=== PATIENT | male | born 1940 | race Caucasian/White ===

== ENCOUNTER 2020-03-04 19:01 | Inpatient (IN) ==
[2020-03-04] MEDS ORDERED: GLUCAGON 1 MG VIAL IM PRN (22:09)
[2020-03-04 23:02] LABS: Basophils % 0.1 % (0.0-0.8); Hematocrit 27.5 VOL% (42.0-52.0); Hemoglobin 9.6 GM/DL (14.0-18.0); Immature Granulocytes % 0.6 %; Immature Granulocytes Absolute 0.06 #; Lymphocytes # 0.4 10*3/uL (1.4-4.0); Lymphocytes % 4.5 % (21.2-54.2); Mean Corpuscular HGB Conc 34.9 GM/DL (32-36); Mean Corpuscular Volume 104.6 FL (87-102); Monocytes % 2.9 % (1.7-12.7); Neutrophils % 91.9 % (38.7-73.9); Platelet Count 213 T/CUMM (130-400); Red Blood Count 2.63 MC/CUMM (3.8-5.5); Red Cell Distribution Width 14.3 % (9.3-17.3); White Blood Count 9.6 T/CUMM (4-12)
[2020-03-04 23:23] LABS: Band Neutrophils 6 % (0-10); Hypochromasia Slight; Lymphocytes 6 % (20-55); Macrocytosis Slight; Platelet Estimate Normal; Segmented Neutrophils 86 % (50-85); Total Cells Counted 100
[2020-03-04 23:28] LABS: Bilirubin,Total 1.3 MG/DL (0.2-1.0); Calcium 8.3 MG/DL (8.5-10.1)
[2020-03-04] MEDS: SODIUM CHLORIDE 0.9% 1,000 ML IV SCH (23:30)
[2020-03-05] MEDS ORDERED: CHOLECALCIFEROL 1,000 UNIT TABLET PO ONE (00:46)
[2020-03-05] MEDS: PANTOPRAZOLE 40 MG VIAL IV SCH ×2 (02:45→14:35)
[2020-03-05] MEDS: cefTRIAXone 1,000 MG in SYRINGE 1 EACH IV SCH (02:48)
[2020-03-05] MEDS: AZITHROMYCIN INJ 500 MG in SODIUM CHLORIDE 0.9% 250 ML IV SCH (02:55)
[2020-03-05] MEDS: ACETAMINOPHEN 325 MG TABLET PO PRN ×2 (03:23→17:16)
[2020-03-05 06:05] LABS: INR 1.1; PT Patient Result 11.9 SECS (9.8-11.9)
[2020-03-05 07:39] LABS: Albumin 2.8 G/DL (3.4-5.0); Bilirubin,Total 1.6 MG/DL (0.2-1.0); Calcium 8.1 MG/DL (8.5-10.1); Osmolality,Calculated 284.5 MOS/KG (273-304)
[2020-03-05] MEDS ORDERED: POTASSIUM CHLORIDE 20 MEQ TABLET PO ONE (08:04)
[2020-03-05] MEDS ORDERED: ASCORBIC ACID 500 MG TABLET PO SCH (09:00)
[2020-03-05] MEDS: FINASTERIDE 5 MG TABLET PO SCH (09:50)
[2020-03-05] MEDS: ZINC SULFATE 220 MG CAPSULE PO SCH (09:50)
[2020-03-05] MEDS: LACTATED RINGERS 1,000 ML IV SCH ×2 (09:50→17:39)
[2020-03-05] MEDS: DEXAMETHASONE 4 MG/1 ML VIAL IV SCH (09:50)
[2020-03-05] MEDS: FAMOTIDINE 20 MG/2 ML VIAL IV SCH ×2 (09:53→20:46)
[2020-03-05] MEDS ORDERED: LOPERAMIDE 2 MG CAPSULE PO PRN (13:33)
[2020-03-05] MEDS: SODIUM CHLORIDE 0.9% 1,000 ML IV SCH (17:40)
[2020-03-05] MEDS: ASCORBIC ACID 500 MG TABLET PO SCH (20:46)
[2020-03-06] MEDS: LACTATED RINGERS 1,000 ML IV SCH ×3 (01:10→15:37)
[2020-03-06] MEDS: PANTOPRAZOLE 40 MG VIAL IV SCH ×2 (02:40→12:59)
[2020-03-06] MEDS: cefTRIAXone 1,000 MG in SYRINGE 1 EACH IV SCH (02:44)
[2020-03-06] MEDS: AZITHROMYCIN INJ 500 MG in SODIUM CHLORIDE 0.9% 250 ML IV SCH (02:48)
[2020-03-06 06:42] LABS: Hemoglobin 9.7 GM/DL (14.0-18.0); Immature Granulocytes % 1.1 %; Immature Granulocytes Absolute 0.09 #; Lymphocytes # 0.3 10*3/uL (1.4-4.0); Lymphocytes % 3.9 % (21.2-54.2); Mean Corpuscular HGB Conc 34.6 GM/DL (32-36); Mean Corpuscular Volume 105.3 FL (87-102); Mean Platelet Volume 12.1 FL (9.6-12.0); Monocytes % 2.3 % (1.7-12.7); Neutrophils % 92.7 % (38.7-73.9); Platelet Count 240 T/CUMM (130-400); Red Blood Count 2.66 MC/CUMM (3.8-5.5); White Blood Count 8.4 T/CUMM (4-12)
[2020-03-06 07:12] LABS: Albumin 2.4 G/DL (3.4-5.0); Bilirubin,Total 0.6 MG/DL (0.2-1.0); Calcium 8.2 MG/DL (8.5-10.1); Osmolality,Calculated 289.5 MOS/KG (273-304); Total Protein 6.5 G/DL (6.4-8.3)
[2020-03-06 07:29] LABS: Ferritin 6679.1 ng/ml (26-388)
[2020-03-06] MEDS: DEXAMETHASONE 4 MG/1 ML VIAL IV SCH (08:10)
[2020-03-06] MEDS: FINASTERIDE 5 MG TABLET PO SCH (08:11)
[2020-03-06] MEDS: ASCORBIC ACID 500 MG TABLET PO SCH ×2 (08:11→22:01)
[2020-03-06] MEDS: FAMOTIDINE 20 MG/2 ML VIAL IV SCH (08:11)
[2020-03-06] MEDS ORDERED: SODIUM BICARBONATE 50 MEQ/50 ML SYRINGE IV ONE (09:00)
[2020-03-06 09:32] LABS: Band Neutrophils 6 % (0-10); Lymphocytes 11 % (20-55); Metamyelocytes 2 %; Segmented Neutrophils 70 % (50-85); Total Cells Counted 100
[2020-03-06 09:33] LABS: Macrocytosis 2+; Platelet Estimate Normal; Polychromasia Slight
[2020-03-06] MEDS: SODIUM BICARB INJ 100 MEQ in DEXTROSE 5% 1,000 ML IV SCH ×2 (12:04→16:51)
[2020-03-06] MEDS ORDERED: SODIUM CHLORIDE 0.9% 1,000 ML IV PRN (14:07)
[2020-03-07 02:33] LABS: ABG Base Excess -1.8 MMOL/L (-2.5-2.5); ABG HCO3 22.2 MMOL/L (20-26); ABG PCO2 34.7 MM HG (35-48); ABG PH 7.424 (7.35-7.45); ABG PO2 71.7 MM HG (80-95); ABG TCO2 23.3 MMOL/L (23-27); Allen Test Positive; Pt O2 Delivery Device Simple Mask
[2020-03-07] MEDS: cefTRIAXone 1,000 MG in SYRINGE 1 EACH IV SCH (02:40)
[2020-03-07] MEDS: AZITHROMYCIN INJ 500 MG in SODIUM CHLORIDE 0.9% 250 ML IV SCH (02:49)
[2020-03-07] MEDS: PANTOPRAZOLE 40 MG VIAL IV SCH (02:59)
[2020-03-07] MEDS ORDERED: HALOPERIDOL 5 MG/ML AMP IM ONE ×3 (04:18→09:30)
[2020-03-07 06:21] LABS: Total Protein (Chem) 6.5 G/DL (6.4-8.3)
[2020-03-07 07:37] LABS: Ferritin 8048.4 ng/ml (26-388)
[2020-03-07] MEDS: LACTATED RINGERS 1,000 ML IV SCH ×2 (07:56→16:50)
[2020-03-07 09:26] LABS: Albumin (SPE) 3.8 G/DL (3.2-5.3); Albumin (SPE) Rel % 57.9 %; Alpha 1 (SPE) 0.3 G/DL (0.1-0.4); Alpha 2 (SPE) 0.9 G/DL (0.4-1.0); Alpha 2 (SPE) Rel % 14.6 %; Beta (SPE) 0.9 G/DL (0.5-1.1); Beta (SPE) Rel % 13.7 %; Gamma (SPE) 0.6 G/DL (0.7-1.7); Gamma (SPE) Rel % 8.8 %
[2020-03-07] MEDS ORDERED: LORazepam 2 MG/1 ML VIAL IV ONE (09:30)
[2020-03-07 10:17] LABS: Albumin 2.7 G/DL (3.4-5.0); Bilirubin,Total 0.6 MG/DL (0.2-1.0); Calcium 8.8 MG/DL (8.5-10.1); Osmolality,Calculated 298.8 MOS/KG (273-304); Total Protein 6.5 G/DL (6.4-8.3)
[2020-03-07] MEDS ORDERED: ZIPRASIDONE 20 MG/1 ML VIAL IM ONE (10:52)
[2020-03-07] MEDS: SODIUM BICARB INJ 100 MEQ in DEXTROSE 5% 1,000 ML IV SCH ×2 (12:01→18:24)
[2020-03-07] MEDS: DEXAMETHASONE 4 MG/1 ML VIAL IV SCH (12:02)
[2020-03-07] MEDS: FAMOTIDINE 20 MG/2 ML VIAL IV SCH ×3 (12:02→23:45)
[2020-03-07] MEDS ORDERED: METOPROLOL TARTRATE 5 MG/5 ML VIAL IV ONE (12:02)
[2020-03-07] MEDS: FINASTERIDE 5 MG TABLET PO SCH (12:03)
[2020-03-07] MEDS: ASCORBIC ACID 500 MG TABLET PO SCH ×2 (12:03→21:47)
[2020-03-07] MEDS: ZINC SULFATE 220 MG CAPSULE PO SCH (12:03)
[2020-03-07] MEDS: ENOXAPARIN 60 MG/0.6 ML SYRINGE SUBCUT SCH ×2 (12:14→23:45)
[2020-03-07] MEDS: LORazepam 2 MG/1 ML VIAL IV PRN ×2 (12:14→20:34)
[2020-03-07] MEDS: POTASSIUM CHLORIDE RIDER 10 MEQ in PREMIX 1 EACH IV SCH ×4 (12:25→21:46)
[2020-03-08 00:35] LABS: ABG Base Excess -0.1 MMOL/L (-2.5-2.5); ABG HCO3 24.3 MMOL/L (20-26); ABG Oxygen Saturation 93.6 % (95-100); ABG PCO2 40.7 MM HG (35-48); ABG PH 7.392 (7.35-7.45); ABG PO2 74.2 MM HG (80-95); ABG TCO2 22.5 MMOL/L (23-27); Allen Test Positive; Pt O2 Delivery Device Other
[2020-03-08] MEDS ORDERED: METOPROLOL TARTRATE 5 MG/5 ML VIAL IV ONE ×2 (01:11→06:44)
[2020-03-08] MEDS: cefTRIAXone 1,000 MG in SYRINGE 1 EACH IV SCH (01:41)
[2020-03-08] MEDS: LORazepam 2 MG/1 ML VIAL IV PRN ×2 (04:01→08:35)
[2020-03-08] MEDS: AZITHROMYCIN INJ 500 MG in SODIUM CHLORIDE 0.9% 250 ML IV SCH (04:04)
[2020-03-08 05:50] LABS: Basophils % 0.3 % (0.0-0.8); Hematocrit 29.4 VOL% (42.0-52.0); Immature Granulocytes % 5.5 %; Immature Granulocytes Absolute 0.72 #; Lymphocytes # 0.8 10*3/uL (1.4-4.0); Lymphocytes % 6.4 % (21.2-54.2); Mean Corpuscular Volume 104.6 FL (87-102); Mean Platelet Volume 12.6 FL (9.6-12.0); Monocytes % 4.2 % (1.7-12.7); NRBC # 0.02 10*3/uL; Neutrophils % 83.6 % (38.7-73.9); Platelet Count 356 T/CUMM (130-400); Red Blood Count 2.81 MC/CUMM (3.8-5.5); Red Cell Distribution Width 15.5 % (9.3-17.3); White Blood Count 13.1 T/CUMM (4-12)
[2020-03-08 06:05] LABS: Calcium 8.9 MG/DL (8.5-10.1); Osmolality,Calculated 305.3 MOS/KG (273-304)
[2020-03-08 06:08] LABS: Albumin 2.6 G/DL (3.4-5.0); Bilirubin,Total 0.9 MG/DL (0.2-1.0); Calcium 8.8 MG/DL (8.5-10.1); Osmolality,Calculated 305.3 MOS/KG (273-304); Total Protein 6.7 G/DL (6.4-8.3)
[2020-03-08 06:20] LABS: Ferritin 6987.6 ng/ml (26-388)
[2020-03-08 07:32] LABS: Anisocytosis 2+; Band Neutrophils 25 % (0-10); Burr Cells Few; Lymphocytes 8 % (20-55); Nucleated Red Blood Cells 1 (0-5); Ovalocytes Few; Platelet Estimate Normal; Segmented Neutrophils 64 % (50-85); Target Cells Few; Total Cells Counted 100
[2020-03-08] MEDS: ASCORBIC ACID 500 MG TABLET PO SCH (08:18)
[2020-03-08] MEDS: FINASTERIDE 5 MG TABLET PO SCH (08:18)
[2020-03-08] MEDS ORDERED: LABETALOL 20 MG/4 ML SYRINGE IV ONE (08:18)
[2020-03-08] MEDS: DEXTROSE 5% NACL 0.45% 1,000 ML IV SCH ×2 (08:20→15:25)
[2020-03-08] MEDS ORDERED: METOPROLOL TARTRATE 25 MG TABLET PO SCH (09:00)
[2020-03-08] MEDS ORDERED: ETOMIDATE 20 MG/10 ML VIAL IV ONE ×2 (11:20→11:30)
[2020-03-08] MEDS ORDERED: SUCCINYLCHOLINE 200 MG/10 ML VIAL ONE (11:21)
[2020-03-08] MEDS ORDERED: SUCCINYLCHOLINE 200 MG/10 ML VIAL IV ONE (11:30)
[2020-03-08] MEDS ORDERED: LORazepam 2 MG/1 ML VIAL IV PRN (12:00)
[2020-03-08] MEDS: FAMOTIDINE 20 MG/2 ML VIAL IV SCH ×2 (12:15→23:18)
[2020-03-08] MEDS: ENOXAPARIN 60 MG/0.6 ML SYRINGE SUBCUT SCH ×2 (12:47→23:18)
[2020-03-08] MEDS: SODIUM BICARB INJ 100 MEQ in DEXTROSE 5% 1,000 ML IV SCH (12:50)
[2020-03-08 13:02] LABS: ABG Base Excess -1.6 MMOL/L (-2.5-2.5); ABG HCO3 23.1 MMOL/L (20-26); ABG Oxygen Saturation 98.8 % (95-100); ABG PCO2 42.9 MM HG (35-48); ABG PH 7.352 (7.35-7.45); Allen Test Positive; Pt O2 Delivery Device Ventilator
[2020-03-08] MEDS: ACETAMINOPHEN 325 MG TABLET NG PRN ×2 (16:30→20:15)
[2020-03-08] MEDS: INSULIN REGULAR 100 UNIT/ML SUBCUT SCH (17:36)
[2020-03-08] MEDS: METOPROLOL TARTRATE 25 MG TABLET NG SCH (20:09)
[2020-03-08] MEDS: ASCORBIC ACID 500 MG TABLET NG SCH (20:09)
[2020-03-09] MEDS: INSULIN REGULAR 100 UNIT/ML SUBCUT SCH ×5 (00:43→18:59)
[2020-03-09] MEDS: DEXTROSE 5% NACL 0.45% 1,000 ML IV SCH ×4 (03:22→22:56)
[2020-03-09] MEDS: cefTRIAXone 1,000 MG in SYRINGE 1 EACH IV SCH (03:23)
[2020-03-09 04:47] LABS: Basophils % 0.3 % (0.0-0.8); Eosinophils % 0.4 % (0.00-10.9); Hematocrit 27.4 VOL% (42.0-52.0); Hemoglobin 8.9 GM/DL (14.0-18.0); Immature Granulocytes % 9.3 %; Immature Granulocytes Absolute 1.05 #; Lymphocytes # 0.6 10*3/uL (1.4-4.0); Lymphocytes % 5.3 % (21.2-54.2); Mean Corpuscular HGB Conc 32.5 GM/DL (32-36); Mean Corpuscular Volume 108.7 FL (87-102); Monocytes % 3.9 % (1.7-12.7); NRBC # 0.04 10*3/uL; Neutrophils % 80.8 % (38.7-73.9); Platelet Count 240 T/CUMM (130-400); Red Blood Count 2.52 MC/CUMM (3.8-5.5); Red Cell Distribution Width 16.3 % (9.3-17.3); White Blood Count 11.3 T/CUMM (4-12)
[2020-03-09 05:17] LABS: ABG Base Excess 0.7 MMOL/L (-2.5-2.5); ABG Oxygen Saturation 97.7 % (95-100); ABG PCO2 53.2 MM HG (35-48); ABG PH 7.323 (7.35-7.45); ABG TCO2 25.1 MMOL/L (23-27); Allen Test Positive; Pt O2 Delivery Device Ventilator
[2020-03-09 05:41] LABS: Anisocytosis 1+; Band Neutrophils 23 % (0-10); Lymphocytes 9 % (20-55); Nucleated Red Blood Cells 1 (0-5); Platelet Estimate Normal; Segmented Neutrophils 67 % (50-85); Total Cells Counted 100
[2020-03-09 05:42] LABS: Ovalocytes Few; Tear Drop Cells Few
[2020-03-09 05:43] LABS: Albumin 2.1 G/DL (3.4-5.0); Bilirubin,Total 0.6 MG/DL (0.2-1.0); Calcium 8.3 MG/DL (8.5-10.1); Ferritin 5758.9 ng/ml (26-388); Osmolality,Calculated 316.7 MOS/KG (273-304)
[2020-03-09] MEDS: AZITHROMYCIN 250 MG TABLET NG SCH (09:17)
[2020-03-09] MEDS: ASCORBIC ACID 500 MG TABLET NG SCH ×2 (09:17→21:15)
[2020-03-09] MEDS: METOPROLOL TARTRATE 25 MG TABLET NG SCH ×2 (09:17→21:15)
[2020-03-09] MEDS: FINASTERIDE 5 MG TABLET PO SCH (09:17)
[2020-03-09] MEDS: methylPREDNISolone SOD SUC 40 MG/1 ML VIAL IV SCH ×2 (09:27→20:50)
[2020-03-09] MEDS: FAMOTIDINE 20 MG/2 ML VIAL IV SCH ×2 (12:20→22:56)
[2020-03-09] MEDS: ENOXAPARIN 60 MG/0.6 ML SYRINGE SUBCUT SCH ×2 (12:20→22:56)
[2020-03-10] MEDS: INSULIN REGULAR 100 UNIT/ML SUBCUT SCH ×4 (00:48→17:27)
[2020-03-10] MEDS: cefTRIAXone 1,000 MG in SYRINGE 1 EACH IV SCH (02:20)
[2020-03-10 03:19] LABS: Basophils % 0.3 % (0.0-0.8); Hematocrit 27.8 VOL% (42.0-52.0); Immature Granulocytes % 8.7 %; Immature Granulocytes Absolute 0.63 #; Lymphocytes # 0.3 10*3/uL (1.4-4.0); Mean Corpuscular HGB Conc 32.4 GM/DL (32-36); Mean Corpuscular Volume 111.6 FL (87-102); Mean Platelet Volume 12.4 FL (9.6-12.0); Monocytes % 3.3 % (1.7-12.7); NRBC # 0.02 10*3/uL; Neutrophils % 83.7 % (38.7-73.9); Platelet Count 224 T/CUMM (130-400); Red Blood Count 2.49 MC/CUMM (3.8-5.5); Red Cell Distribution Width 16.8 % (9.3-17.3); White Blood Count 7.3 T/CUMM (4-12)
[2020-03-10 03:44] LABS: Albumin 2.1 G/DL (3.4-5.0); Calcium 8.3 MG/DL (8.5-10.1); Osmolality,Calculated 319.3 MOS/KG (273-304); Total Protein 6.2 G/DL (6.4-8.3)
[2020-03-10 03:50] LABS: Band Neutrophils 3 % (0-10); Hypochromasia Slight; Lymphocytes 7 % (20-55); Macrocytosis Slight; Nucleated Red Blood Cells 1 (0-5); Platelet Estimate Normal; Segmented Neutrophils 86 % (50-85); Total Cells Counted 100
[2020-03-10] MEDS: DEXTROSE 5% NACL 0.45% 1,000 ML IV SCH ×4 (05:20→17:50)
[2020-03-10] MEDS: ZINC SULFATE 220 MG CAPSULE NG SCH (08:03)
[2020-03-10] MEDS: METOPROLOL TARTRATE 25 MG TABLET NG SCH ×2 (08:03→20:59)
[2020-03-10] MEDS: CHOLECALCIFEROL 1,000 UNIT TABLET PO SCH (08:03)
[2020-03-10] MEDS: methylPREDNISolone SOD SUC 40 MG/1 ML VIAL IV SCH ×2 (08:03→20:59)
[2020-03-10] MEDS: AZITHROMYCIN 250 MG TABLET NG SCH (08:03)
[2020-03-10] MEDS: FINASTERIDE 5 MG TABLET PO SCH (08:03)
[2020-03-10] MEDS: ASCORBIC ACID 500 MG TABLET NG SCH ×2 (08:03→20:59)
[2020-03-10 09:16] LABS: ABG Base Excess -0.6 MMOL/L (-2.5-2.5); ABG HCO3 23.9 MMOL/L (20-26); ABG Oxygen Saturation 96.8 % (95-100); ABG PCO2 49.7 MM HG (35-48); ABG PH 7.324 (7.35-7.45); ABG TCO2 23.8 MMOL/L (23-27)
[2020-03-10] MEDS: FAMOTIDINE 20 MG/2 ML VIAL IV SCH ×2 (11:21→23:45)
[2020-03-10] MEDS: ENOXAPARIN 60 MG/0.6 ML SYRINGE SUBCUT SCH (11:21)
[2020-03-10] MEDS ORDERED: ENOXAPARIN 60 MG/0.6 ML SYRINGE SUBCUT ONE (16:30)
[2020-03-10 17:53] LABS: ABG Base Excess -1.4 MMOL/L (-2.5-2.5); ABG HCO3 23.2 MMOL/L (20-26); ABG Oxygen Saturation 98.2 % (95-100); ABG PCO2 51.6 MM HG (35-48); ABG PH 7.302 (7.35-7.45); ABG TCO2 23.5 MMOL/L (23-27)
[2020-03-10] MEDS ORDERED: ROCURONIUM 500 MG in SODIUM CHLORIDE 0.9% 500 ML IV PRN (18:20)
[2020-03-10] MEDS: INSULIN GLARGINE 100 UNIT/ML SUBCUT SCH (20:59)
[2020-03-11] MEDS: INSULIN REGULAR 100 UNIT/ML SUBCUT SCH ×4 (01:00→19:12)
[2020-03-11] MEDS: cefTRIAXone 1,000 MG in SYRINGE 1 EACH IV SCH (03:00)
[2020-03-11 03:46] LABS: ABG HCO3 23.6 MMOL/L (20-26); ABG Oxygen Saturation 97.1 % (95-100); ABG PCO2 46.2 MM HG (35-48); ABG PH 7.341 (7.35-7.45); ABG PO2 92.7 MM HG (80-95); ABG TCO2 23.1 MMOL/L (23-27); Allen Test Positive; Pt O2 Delivery Device Ventilator
[2020-03-11 03:55] LABS: Basophils % 0.1 % (0.0-0.8); Hematocrit 27.4 VOL% (42.0-52.0); Immature Granulocytes % 8.4 %; Immature Granulocytes Absolute 0.87 #; Lymphocytes # 0.4 10*3/uL (1.4-4.0); Lymphocytes % 4.3 % (21.2-54.2); Mean Corpuscular HGB Conc 32.8 GM/DL (32-36); Mean Corpuscular Volume 109.6 FL (87-102); Monocytes % 3.8 % (1.7-12.7); NRBC # 0.03 10*3/uL; Neutrophils % 83.4 % (38.7-73.9); Platelet Count 266 T/CUMM (130-400); Red Cell Distribution Width 16.9 % (9.3-17.3); White Blood Count 10.4 T/CUMM (4-12)
[2020-03-11 04:27] LABS: Calcium 8.5 MG/DL (8.5-10.1); Osmolality,Calculated 319.4 MOS/KG (273-304)
[2020-03-11 05:21] LABS: Band Neutrophils 5 % (0-10); Hypochromasia Slight; Lymphocytes 4 % (20-55); Macrocytosis 1+; Metamyelocytes 3 %; Myelocytes 2 %; Nucleated Red Blood Cells 1 (0-5); Platelet Estimate Normal; Segmented Neutrophils 84 % (50-85); Total Cells Counted 100
[2020-03-11] MEDS ORDERED: SODIUM CHLORIDE 0.9% 500 ML IV ONE (05:51)
[2020-03-11] MEDS ORDERED: METOPROLOL TARTRATE 5 MG/5 ML VIAL IV ONE (07:55)
[2020-03-11] MEDS ORDERED: LACTATED RINGERS 500 ML IV ONE (08:41)
[2020-03-11] MEDS: DEXTROSE 5% NACL 0.45% 1,000 ML IV SCH ×2 (10:24→14:53)
[2020-03-11] MEDS: ENOXAPARIN 120 MG/0.8 ML SYRINGE SUBCUT SCH (10:26)
[2020-03-11] MEDS: METOPROLOL TARTRATE 25 MG TABLET NG SCH ×2 (10:26→20:28)
[2020-03-11] MEDS: methylPREDNISolone SOD SUC 40 MG/1 ML VIAL IV SCH ×2 (10:26→20:29)
[2020-03-11] MEDS: FINASTERIDE 5 MG TABLET PO SCH (10:27)
[2020-03-11] MEDS: FAMOTIDINE 20 MG/2 ML VIAL IV SCH ×2 (10:27→22:14)
[2020-03-11] MEDS: ASCORBIC ACID 500 MG TABLET NG SCH ×2 (10:27→20:28)
[2020-03-11] MEDS: AZITHROMYCIN 250 MG TABLET NG SCH (10:27)
[2020-03-11] MEDS: CHOLECALCIFEROL 1,000 UNIT TABLET PO SCH (10:27)
[2020-03-11] MEDS ORDERED: FUROSEMIDE 40 MG/4 ML VIAL IV ONE (16:15)
[2020-03-11] MEDS: INSULIN GLARGINE 100 UNIT/ML SUBCUT SCH (20:29)
[2020-03-12] MEDS: INSULIN REGULAR 100 UNIT/ML SUBCUT SCH ×4 (00:42→18:01)
[2020-03-12] MEDS: cefTRIAXone 1,000 MG in SYRINGE 1 EACH IV SCH (02:43)
[2020-03-12 04:36] LABS: Basophils % 0.2 % (0.0-0.8); Hematocrit 29.8 VOL% (42.0-52.0); Hemoglobin 9.6 GM/DL (14.0-18.0); Immature Granulocytes % 8.5 %; Immature Granulocytes Absolute 1.07 #; Lymphocytes # 0.6 10*3/uL (1.4-4.0); Lymphocytes % 4.9 % (21.2-54.2); Mean Corpuscular HGB Conc 32.2 GM/DL (32-36); Mean Corpuscular Volume 110.8 FL (87-102); Monocytes % 4.2 % (1.7-12.7); NRBC # 0.03 10*3/uL; Neutrophils % 82.2 % (38.7-73.9); Platelet Count 333 T/CUMM (130-400); Red Blood Count 2.69 MC/CUMM (3.8-5.5); Red Cell Distribution Width 16.6 % (9.3-17.3); White Blood Count 12.5 T/CUMM (4-12)
[2020-03-12 04:57] LABS: Albumin 2.1 G/DL (3.4-5.0); Bilirubin,Total 0.4 MG/DL (0.2-1.0); Calcium 8.3 MG/DL (8.5-10.1); Osmolality,Calculated 323.7 MOS/KG (273-304); Total Protein 6.4 G/DL (6.4-8.3)
[2020-03-12 05:17] LABS: ABG Base Excess -5.8 MMOL/L (-2.5-2.5); ABG HCO3 19.6 MMOL/L (20-26); ABG Oxygen Saturation 98.3 % (95-100); ABG PCO2 51.4 MM HG (35-48); ABG PH 7.237 (7.35-7.45); ABG TCO2 20.4 MMOL/L (23-27)
[2020-03-12 05:24] LABS: Band Neutrophils 3 % (0-10); Lymphocytes 6 % (20-55); Metamyelocytes 2 %; Myelocytes 3 %; Segmented Neutrophils 84 % (50-85); Total Cells Counted 100
[2020-03-12 05:25] LABS: Hypochromasia Slight; Macrocytosis 1+; Ovalocytes Slight; Platelet Estimate Normal
[2020-03-12] MEDS ORDERED: LACTATED RINGERS 1,000 ML IV ONE (09:29)
[2020-03-12] MEDS: FAMOTIDINE 20 MG/2 ML VIAL IV SCH ×2 (10:05→22:38)
[2020-03-12] MEDS: FINASTERIDE 5 MG TABLET PO SCH (10:06)
[2020-03-12] MEDS: methylPREDNISolone SOD SUC 40 MG/1 ML VIAL IV SCH ×2 (10:06→20:14)
[2020-03-12] MEDS: METOPROLOL TARTRATE 25 MG TABLET NG SCH ×2 (10:07→20:14)
[2020-03-12] MEDS: ENOXAPARIN 120 MG/0.8 ML SYRINGE SUBCUT SCH (10:07)
[2020-03-12] MEDS: ASCORBIC ACID 500 MG TABLET NG SCH ×2 (10:07→20:14)
[2020-03-12] MEDS: CHOLECALCIFEROL 1,000 UNIT TABLET PO SCH (10:07)
[2020-03-12] MEDS: ZINC SULFATE 220 MG CAPSULE NG SCH (10:22)
[2020-03-12] MEDS: LACTATED RINGERS 1,000 ML IV SCH ×3 (11:13→21:17)
[2020-03-12] MEDS: MEROPENEM 500 MG in SODIUM CHLORIDE 0.9% 100 ML IV SCH (14:43)
[2020-03-12] MEDS: LINEZOLID INJ 600 MG in PREMIX 1 EACH IV SCH (14:45)
[2020-03-12] MEDS: INSULIN GLARGINE 100 UNIT/ML SUBCUT SCH (20:17)
[2020-03-13] MEDS: INSULIN REGULAR 100 UNIT/ML SUBCUT SCH ×4 (00:40→18:57)
[2020-03-13] MEDS: MEROPENEM 500 MG in SODIUM CHLORIDE 0.9% 100 ML IV SCH ×2 (02:24→14:33)
[2020-03-13] MEDS: LINEZOLID INJ 600 MG in PREMIX 1 EACH IV SCH ×2 (02:57→15:38)
[2020-03-13 02:59] LABS: ABG Base Excess -8.4 MMOL/L (-2.5-2.5); ABG HCO3 17.6 MMOL/L (20-26); ABG Oxygen Saturation 97.3 % (95-100); ABG PCO2 43.9 MM HG (35-48); ABG PH 7.238 (7.35-7.45); ABG TCO2 17.5 MMOL/L (23-27)
[2020-03-13 04:21] LABS: Basophils % 0.2 % (0.0-0.8); Eosinophils % 0.1 % (0.00-10.9); Hematocrit 28.1 VOL% (42.0-52.0); Hemoglobin 9.2 GM/DL (14.0-18.0); Immature Granulocytes % 6.4 %; Immature Granulocytes Absolute 1.06 #; Lymphocytes # 0.6 10*3/uL (1.4-4.0); Lymphocytes % 3.7 % (21.2-54.2); Mean Corpuscular HGB Conc 32.7 GM/DL (32-36); Mean Corpuscular Volume 109.3 FL (87-102); Mean Platelet Volume 12.4 FL (9.6-12.0); Monocytes % 5.1 % (1.7-12.7); NRBC # 0.02 10*3/uL; Neutrophils % 84.5 % (38.7-73.9); Platelet Count 293 T/CUMM (130-400); Red Blood Count 2.57 MC/CUMM (3.8-5.5); Red Cell Distribution Width 16.8 % (9.3-17.3); White Blood Count 16.6 T/CUMM (4-12)
[2020-03-13 04:44] LABS: Band Neutrophils 2 % (0-10); Lymphocytes 8 % (20-55); Platelet Estimate Normal; Segmented Neutrophils 86 % (50-85); Total Cells Counted 100
[2020-03-13 04:45] LABS: Hypochromasia Slight; Macrocytosis Slight
[2020-03-13 04:52] LABS: Albumin 1.9 G/DL (3.4-5.0); Bilirubin,Total 0.8 MG/DL (0.2-1.0); Calcium 8.3 MG/DL (8.5-10.1)
[2020-03-13] MEDS: LACTATED RINGERS 1,000 ML IV SCH (05:38)
[2020-03-13] MEDS ORDERED: SODIUM POLYSTYRENE SULFATE 15 GM/60 ML BOTTLE PO ONE (05:47)
[2020-03-13] MEDS: FINASTERIDE 5 MG TABLET PO SCH (08:16)
[2020-03-13] MEDS: ASCORBIC ACID 500 MG TABLET NG SCH ×2 (08:16→20:12)
[2020-03-13] MEDS: CHOLECALCIFEROL 1,000 UNIT TABLET PO SCH (08:16)
[2020-03-13] MEDS: methylPREDNISolone SOD SUC 40 MG/1 ML VIAL IV SCH ×2 (08:17→20:10)
[2020-03-13] MEDS: METOPROLOL TARTRATE 25 MG TABLET NG SCH ×2 (08:17→20:11)
[2020-03-13] MEDS: HEPARIN DRIP 25,000 UNITS/500 ML PREMIX IV SCH (09:44)
[2020-03-13] MEDS: FAMOTIDINE 20 MG/2 ML VIAL IV SCH ×2 (11:40→22:31)
[2020-03-13] MEDS ORDERED: INSULIN REGULAR 100 UNIT/ML IV ONE (14:54)
[2020-03-13] MEDS ORDERED: CALCIUM GLUCONATE 1,000 MG in SODIUM CHLORIDE 0.9% 100 ML IV ONE (15:00)
[2020-03-13] MEDS: SODIUM BICARB INJ 100 MEQ in DEXTROSE 5% 1,000 ML IV SCH (16:45)
[2020-03-13] MEDS: INSULIN GLARGINE 100 UNIT/ML SUBCUT SCH (20:11)
[2020-03-14] MEDS: INSULIN REGULAR 100 UNIT/ML SUBCUT SCH ×4 (00:54→18:31)
[2020-03-14] MEDS: HEPARIN DRIP 25,000 UNITS/500 ML PREMIX IV SCH ×2 (00:55→08:03)
[2020-03-14] MEDS: MEROPENEM 500 MG in SODIUM CHLORIDE 0.9% 100 ML IV SCH (02:36)
[2020-03-14] MEDS: LINEZOLID INJ 600 MG in PREMIX 1 EACH IV SCH ×2 (03:19→15:15)
[2020-03-14 04:18] LABS: Basophils % 0.2 % (0.0-0.8); Eosinophils % 0.2 % (0.00-10.9); Hematocrit 25.6 VOL% (42.0-52.0); Hemoglobin 8.4 GM/DL (14.0-18.0); Immature Granulocytes % 5.7 %; Immature Granulocytes Absolute 1.03 #; Lymphocytes # 0.5 10*3/uL (1.4-4.0); Lymphocytes % 2.6 % (21.2-54.2); Mean Corpuscular HGB Conc 32.8 GM/DL (32-36); Mean Platelet Volume 12.3 FL (9.6-12.0); Monocytes % 2.7 % (1.7-12.7); Neutrophils % 88.6 % (38.7-73.9); Platelet Count 247 T/CUMM (130-400); Red Blood Count 2.37 MC/CUMM (3.8-5.5); Red Cell Distribution Width 16.4 % (9.3-17.3)
[2020-03-14 04:37] LABS: Uric Acid 9.5 MG/DL (3.5-7.2)
[2020-03-14 04:45] LABS: Eosinophils 1 % (0-10); Hypochromasia 1+; Lymphocytes 2 % (20-55); Macrocytosis Slight; Ovalocytes Slight; Platelet Estimate Adequate; Segmented Neutrophils 92 % (50-85); Total Cells Counted 100
[2020-03-14 04:47] LABS: Folate 6.2 NG/ML (5.4-24.0)
[2020-03-14 04:51] LABS: ABG Base Excess -8.1 MMOL/L (-2.5-2.5); ABG HCO3 19.9 MMOL/L (20-26); ABG Oxygen Saturation 95.9 % (95-100); ABG PCO2 53.1 MM HG (35-48); ABG PO2 107.9 MM HG (80-95); ABG TCO2 21.5 MMOL/L (23-27); Allen Test Positive; Pt O2 Delivery Device Ventilator
[2020-03-14 04:53] LABS: Ferritin 2919.7 ng/ml (26-388)
[2020-03-14 04:55] LABS: ABG PH 7.191 (7.35-7.45)
[2020-03-14 05:35] LABS: Calcium 7.8 MG/DL (8.5-10.1); Osmolality,Calculated 341.1 MOS/KG (273-304)
[2020-03-14] MEDS: SODIUM BICARB INJ 100 MEQ in DEXTROSE 5% 1,000 ML IV SCH (05:55)
[2020-03-14 06:34] LABS: Amorphous Crystals,Urine Occasional /HPF (Few); Bilirubin,Urine Negative (Negative); Blood, Urine Large mg/dL (Negative); Glucose,Urine (UA) Negative (Negative); Ketones,Urine Negative (Negative); Mucus,Urine Occasional /LPF (Occasional); Nitrite,Urine Negative (Negative); Protein,Urine Negative; RBC,Urine 21 /HPF (0-4); Uric Acid Crystals,Urine Occasional /HPF (<1); Urine Appearance CLOUDY (Clear); Urine Color Yellow (Yellow); Urine Specific Gravity 1.013 (1.001-1.035); Urine Urobilinogen < 2.0 EU/DL (0.2-1.0)
[2020-03-14] MEDS: ASCORBIC ACID 500 MG TABLET NG SCH ×2 (08:02→20:11)
[2020-03-14] MEDS: methylPREDNISolone SOD SUC 40 MG/1 ML VIAL IV SCH ×2 (08:02→20:11)
[2020-03-14] MEDS: FINASTERIDE 5 MG TABLET PO SCH (08:02)
[2020-03-14] MEDS: CHOLECALCIFEROL 1,000 UNIT TABLET PO SCH (08:02)
[2020-03-14] MEDS: METOPROLOL TARTRATE 25 MG TABLET NG SCH ×2 (08:02→20:11)
[2020-03-14] MEDS: ZINC SULFATE 220 MG CAPSULE NG SCH (08:03)
[2020-03-14] MEDS ORDERED: INSULIN REGULAR 100 UNIT/ML IV ONE (08:39)
[2020-03-14] MEDS ORDERED: SODIUM POLYSTYRENE SULFATE 15 GM/60 ML BOTTLE PO ONE (08:39)
[2020-03-14] MEDS ORDERED: DEXTROSE 50% 25 GM/50 ML VIAL IV ONE (08:41)
[2020-03-14] MEDS ORDERED: CALCIUM GLUCONATE 1,000 MG in SODIUM CHLORIDE 0.9% 100 ML IV ONE (09:30)
[2020-03-14] MEDS: FAMOTIDINE 20 MG/2 ML VIAL IV SCH (13:40)
[2020-03-14 14:16] LABS: Mycoplasma pneumoniae Ab, IgG Negative (Negative); Mycoplasma pneumoniae Ab, IgM Negative (Negative)
[2020-03-14 15:05] LABS: Hepatitis B Core IgM Quant 0.06 Index; Hepatitis B Surface Ag Quant 0.45 Index; Hepatitis B Surface Ag Result Negative (Negative); Hepatitis C Virus Ab Quant < 0.02 Index; Hepatitis C Virus Ab Result Negative (Negative)
[2020-03-14] MEDS ORDERED: HEPARIN 10,000 UNIT/10 ML VIAL IV PRN (17:17)
[2020-03-14 19:10] LABS: Calcium 7.4 MG/DL (8.5-10.1); Osmolality,Calculated 326.8 MOS/KG (273-304)
[2020-03-14] MEDS: INSULIN GLARGINE 100 UNIT/ML SUBCUT SCH (20:20)
[2020-03-15] MEDS: INSULIN REGULAR 100 UNIT/ML SUBCUT SCH ×4 (00:08→18:50)
[2020-03-15] MEDS: MEROPENEM 500 MG in SODIUM CHLORIDE 0.9% 100 ML IV SCH (02:40)
[2020-03-15] MEDS: LINEZOLID INJ 600 MG in PREMIX 1 EACH IV SCH ×2 (03:30→15:07)
[2020-03-15 04:44] LABS: ABG Base Excess -5.2 MMOL/L (-2.5-2.5); ABG HCO3 22.4 MMOL/L (20-26); ABG Oxygen Saturation 98.8 % (95-100); ABG PCO2 56.8 MM HG (35-48); ABG PH 7.213 (7.35-7.45); ABG PO2 182.4 MM HG (80-95); ABG TCO2 24.1 MMOL/L (23-27); Allen Test Positive; Pt O2 Delivery Device Ventilator
[2020-03-15] MEDS: HEPARIN DRIP 25,000 UNITS/500 ML PREMIX IV SCH ×2 (05:21→09:54)
[2020-03-15 06:05] LABS: Basophils % 0.1 % (0.0-0.8); Eosinophils % 0.1 % (0.00-10.9); Hematocrit 19.3 VOL% (42.0-52.0); Immature Granulocytes % 5.3 %; Immature Granulocytes Absolute 0.95 #; Lymphocytes # 0.7 10*3/uL (1.4-4.0); Lymphocytes % 3.6 % (21.2-54.2); Mean Corpuscular HGB Conc 33.2 GM/DL (32-36); Mean Corpuscular Volume 107.8 FL (87-102); Mean Platelet Volume 12.3 FL (9.6-12.0); Monocytes % 4.4 % (1.7-12.7); NRBC # 0.03 10*3/uL; Neutrophils % 86.5 % (38.7-73.9); Platelet Count 205 T/CUMM (130-400); Red Blood Count 1.79 MC/CUMM (3.8-5.5); Red Cell Distribution Width 16.5 % (9.3-17.3); White Blood Count 18.1 T/CUMM (4-12)
[2020-03-15 06:44] LABS: Hemoglobin 6.4 GM/DL (14.0-18.0)
[2020-03-15 06:46] LABS: Calcium 6.9 MG/DL (8.5-10.1)
[2020-03-15 06:50] LABS: Band Neutrophils 3 % (0-10); Lymphocytes 4 % (20-55); Myelocytes 1 %; Platelet Estimate Normal; Segmented Neutrophils 91 % (50-85); Total Cells Counted 100
[2020-03-15 06:51] LABS: Hypochromasia 2+; Macrocytosis Slight
[2020-03-15] MEDS ORDERED: SODIUM CHLORIDE 0.9% 1,000 ML IV PRN (07:05)
[2020-03-15] MEDS: methylPREDNISolone SOD SUC 40 MG/1 ML VIAL IV SCH ×2 (08:29→20:23)
[2020-03-15] MEDS: CHOLECALCIFEROL 1,000 UNIT TABLET PO SCH (08:30)
[2020-03-15] MEDS: ASCORBIC ACID 500 MG TABLET NG SCH ×2 (08:30→20:23)
[2020-03-15] MEDS: FINASTERIDE 5 MG TABLET PO SCH (08:30)
[2020-03-15] MEDS: METOPROLOL TARTRATE 25 MG TABLET NG SCH ×2 (08:30→20:22)
[2020-03-15] MEDS: FAMOTIDINE 20 MG/2 ML VIAL IV SCH (08:32)
[2020-03-15] MEDS: METOCLOPRAMIDE 10 MG/2 ML VIAL IV SCH ×2 (15:02→18:45)
[2020-03-15 15:29] LABS: INR 1.1; PT Patient Result 11.3 SECS (9.8-11.9)
[2020-03-15] MEDS: INSULIN GLARGINE 100 UNIT/ML SUBCUT SCH (20:22)
[2020-03-15 21:34] LABS: Hematocrit 23.8 VOL% (42.0-52.0)
[2020-03-15 21:37] LABS: Hemoglobin 8.1 GM/DL (14.0-18.0)
[2020-03-16] MEDS: INSULIN REGULAR 100 UNIT/ML SUBCUT SCH ×4 (00:24→17:46)
[2020-03-16] MEDS: METOCLOPRAMIDE 10 MG/2 ML VIAL IV SCH ×4 (00:24→18:02)
[2020-03-16] MEDS: METOPROLOL TARTRATE 5 MG/5 ML VIAL IV PRN ×2 (02:30→12:35)
[2020-03-16] MEDS: MEROPENEM 500 MG in SODIUM CHLORIDE 0.9% 100 ML IV SCH (02:45)
[2020-03-16] MEDS: LINEZOLID INJ 600 MG in PREMIX 1 EACH IV SCH ×2 (03:30→14:25)
[2020-03-16 04:02] LABS: ABG Base Excess -7.2 MMOL/L (-2.5-2.5); ABG HCO3 18.5 MMOL/L (20-26); ABG Oxygen Saturation 98.9 % (95-100); ABG PCO2 57.1 MM HG (35-48); ABG TCO2 20.4 MMOL/L (23-27); Allen Test Positive; Pt O2 Delivery Device Ventilator
[2020-03-16 04:05] LABS: ABG PH 7.179 (7.35-7.45)
[2020-03-16 05:17] LABS: Bilirubin,Total 0.6 MG/DL (0.2-1.0); Calcium 6.8 MG/DL (8.5-10.1); Osmolality,Calculated 312.2 MOS/KG (273-304); Total Protein 5.6 G/DL (6.4-8.3)
[2020-03-16 05:28] LABS: Basophils # 0.1 10*3/uL (0.0-0.2); Basophils % 0.3 % (0.0-0.8); Hemoglobin 8.3 GM/DL (14.0-18.0); Immature Granulocytes % 6.9 %; Immature Granulocytes Absolute 2.12 #; Lymphocytes # 1.1 10*3/uL (1.4-4.0); Lymphocytes % 3.6 % (21.2-54.2); Mean Corpuscular HGB Conc 34.6 GM/DL (32-36); Mean Corpuscular Volume 95.6 FL (87-102); Mean Platelet Volume 12.6 FL (9.6-12.0); NRBC # 0.04 10*3/uL; Neutrophils % 84.2 % (38.7-73.9)
[2020-03-16 05:33] LABS: Platelet Count 252 T/CUMM (130-400); Red Blood Count 2.51 MC/CUMM (3.8-5.5); White Blood Count 30.7 T/CUMM (4-12)
[2020-03-16 05:43] LABS: Lymphocytes 9 % (20-55); Segmented Neutrophils 84 % (50-85); Total Cells Counted 100
[2020-03-16 05:44] LABS: Hypochromasia 1+; Microcytosis 1+; Platelet Estimate Adequate
[2020-03-16] MEDS: CALCIUM ACETATE 667 MG CAPSULE PO SCH ×3 (08:23→18:07)
[2020-03-16] MEDS: FAMOTIDINE 20 MG/2 ML VIAL IV SCH (08:23)
[2020-03-16] MEDS: FINASTERIDE 5 MG TABLET PO SCH (08:23)
[2020-03-16] MEDS: CHOLECALCIFEROL 1,000 UNIT TABLET PO SCH (08:24)
[2020-03-16] MEDS: methylPREDNISolone SOD SUC 40 MG/1 ML VIAL IV SCH ×2 (08:24→20:25)
[2020-03-16] MEDS: METOPROLOL TARTRATE 25 MG TABLET NG SCH ×2 (08:24→20:28)
[2020-03-16] MEDS: ZINC SULFATE 220 MG CAPSULE NG SCH (08:24)
[2020-03-16] MEDS: ASCORBIC ACID 500 MG TABLET NG SCH ×2 (08:24→20:28)
[2020-03-16] MEDS ORDERED: SODIUM BICARBONATE 50 MEQ/50 ML VIAL IV ONE (13:54)
[2020-03-16] MEDS: INSULIN GLARGINE 100 UNIT/ML SUBCUT SCH (20:25)
[2020-03-16] MEDS: FLUCONAZOLE INJ 200 MG in PREMIX 1 EACH IV SCH (20:40)
[2020-03-17] MEDS: METOCLOPRAMIDE 10 MG/2 ML VIAL IV SCH ×5 (00:35→23:58)
[2020-03-17] MEDS: INSULIN REGULAR 100 UNIT/ML SUBCUT SCH ×5 (00:35→23:57)
[2020-03-17] MEDS: MEROPENEM 500 MG in SODIUM CHLORIDE 0.9% 100 ML IV SCH (02:48)
[2020-03-17] MEDS: LINEZOLID INJ 600 MG in PREMIX 1 EACH IV SCH ×2 (03:45→16:00)
[2020-03-17 04:27] LABS: ABG Base Excess -7.1 MMOL/L (-2.5-2.5); ABG HCO3 18.9 MMOL/L (20-26); ABG Oxygen Saturation 98.5 % (95-100); ABG PCO2 40.6 MM HG (35-48); ABG PH 7.286 (7.35-7.45); ABG PO2 200.2 MM HG (80-95); ABG TCO2 20.2 MMOL/L (23-27); Allen Test Positive; Pt O2 Delivery Device Ventilator
[2020-03-17 05:26] LABS: Basophils % 0.1 % (0.0-0.8); Hematocrit 20.1 VOL% (42.0-52.0); Immature Granulocytes % 7.5 %; Immature Granulocytes Absolute 1.97 #; Lymphocytes # 0.9 10*3/uL (1.4-4.0); Lymphocytes % 3.4 % (21.2-54.2); Mean Corpuscular HGB Conc 34.3 GM/DL (32-36); Mean Corpuscular Volume 95.3 FL (87-102); Mean Platelet Volume 12.4 FL (9.6-12.0); Monocytes % 3.7 % (1.7-12.7); NRBC # 0.02 10*3/uL; Neutrophils % 85.3 % (38.7-73.9); Red Blood Count 2.11 MC/CUMM (3.8-5.5); White Blood Count 26.3 T/CUMM (4-12)
[2020-03-17 05:35] LABS: Calcium 6.6 MG/DL (8.5-10.1); Osmolality,Calculated 314.4 MOS/KG (273-304)
[2020-03-17 05:53] LABS: Hemoglobin 6.9 GM/DL (14.0-18.0); Platelet Count 193 T/CUMM (130-400)
[2020-03-17 05:54] LABS: Ferritin 3520.5 ng/ml (26-388)
[2020-03-17] MEDS ORDERED: SODIUM CHLORIDE 0.9% 1,000 ML IV PRN (07:24)
[2020-03-17 07:32] LABS: Metamyelocytes 8 %; Myelocytes 2 %; Nucleated Red Blood Cells 2 (0-5); Total Cells Counted 100
[2020-03-17 07:34] LABS: Band Neutrophils 7 % (0-10); Hypochromasia 2+; Lymphocytes 4 % (20-55); Platelet Estimate Normal; Segmented Neutrophils 77 % (50-85)
[2020-03-17] MEDS: methylPREDNISolone SOD SUC 40 MG/1 ML VIAL IV SCH ×2 (08:55→20:04)
[2020-03-17] MEDS: CALCIUM ACETATE 667 MG CAPSULE PO SCH ×3 (09:00→17:27)
[2020-03-17] MEDS: CHOLECALCIFEROL 1,000 UNIT TABLET PO SCH (09:22)
[2020-03-17] MEDS: ASCORBIC ACID 500 MG TABLET NG SCH ×2 (09:22→20:04)
[2020-03-17] MEDS: FINASTERIDE 5 MG TABLET PO SCH (09:22)
[2020-03-17] MEDS: METOPROLOL TARTRATE 25 MG TABLET NG SCH ×2 (09:22→20:04)
[2020-03-17] MEDS: FAMOTIDINE 20 MG/2 ML VIAL IV SCH (09:22)
[2020-03-17 11:30] LABS: PT Patient Result 10.9 SECS (9.8-11.9); Partial Thromboplastin Time 35.3 SECS (23.9-33.8)
[2020-03-17 14:31] LABS: ABG Base Excess -8.5 MMOL/L (-2.5-2.5); ABG HCO3 17.6 MMOL/L (20-26); ABG Oxygen Saturation 98.8 % (95-100); ABG PCO2 47.5 MM HG (35-48); ABG PH 7.215 (7.35-7.45); ABG TCO2 17.9 MMOL/L (23-27); Allen Test Positive; Pt O2 Delivery Device Ventilator
[2020-03-17 18:53] LABS: Hematocrit 28.3 VOL% (42.0-52.0)
[2020-03-17 18:55] LABS: Hemoglobin 9.6 GM/DL (14.0-18.0)
[2020-03-17] MEDS: FLUCONAZOLE INJ 200 MG in PREMIX 1 EACH IV SCH (20:05)
[2020-03-17] MEDS: INSULIN GLARGINE 100 UNIT/ML SUBCUT SCH (20:05)
[2020-03-18] MEDS: ROCURONIUM 500 MG in SODIUM CHLORIDE 0.9% 500 ML IV PRN ×2 (01:01→18:44)
[2020-03-18] MEDS ORDERED: EPINEPHrine 1 MG/10 ML SYRINGE ONE (03:29)
[2020-03-18] MEDS ORDERED: SODIUM BICARBONATE 50 MEQ/50 ML SYRINGE IV ONE (03:29)
[2020-03-18] MEDS ORDERED: CALCIUM CHLORIDE 1,000 MG/10 ML SYRINGE IV ONE (03:29)
[2020-03-18] MEDS: MEROPENEM 500 MG in SODIUM CHLORIDE 0.9% 100 ML IV SCH (04:25)
[2020-03-18] MEDS: ALBUTEROL INHALER 18 GM INH SCH ×5 (04:31→20:03)
[2020-03-18 04:53] LABS: Allen Test Positive; Pt O2 Delivery Device Ventilator
[2020-03-18 04:59] LABS: ABG Base Excess -12.3 MMOL/L (-2.5-2.5); ABG HCO3 15.9 MMOL/L (20-26); ABG Oxygen Saturation 91.3 % (95-100); ABG PCO2 46.6 MM HG (35-48); ABG PO2 79.8 MM HG (80-95); ABG TCO2 17.4 MMOL/L (23-27)
[2020-03-18] MEDS: LINEZOLID INJ 600 MG in PREMIX 1 EACH IV SCH ×2 (05:05→14:57)
[2020-03-18 05:31] LABS: ABG PH 7.152 (7.35-7.45)
[2020-03-18 05:56] LABS: Basophils # 0.1 10*3/uL (0.0-0.2); Basophils % 0.4 % (0.0-0.8); Hematocrit 26.8 VOL% (42.0-52.0); Hemoglobin 8.9 GM/DL (14.0-18.0); Immature Granulocytes % 8.1 %; Immature Granulocytes Absolute 2.99 #; Lymphocytes # 0.7 10*3/uL (1.4-4.0); Lymphocytes % 1.9 % (21.2-54.2); Mean Corpuscular HGB Conc 33.2 GM/DL (32-36); Mean Platelet Volume 12.8 FL (9.6-12.0); Monocytes % 3.4 % (1.7-12.7); Neutrophils % 86.2 % (38.7-73.9); Platelet Count 208 T/CUMM (130-400); Red Blood Count 2.85 MC/CUMM (3.8-5.5); Red Cell Distribution Width 21.5 % (9.3-17.3); White Blood Count 37.1 T/CUMM (4-12)
[2020-03-18 07:11] LABS: PT Patient Result 10.9 SECS (9.8-11.9); Partial Thromboplastin Time 34.5 SECS (23.9-33.8)
[2020-03-18 07:12] LABS: Bilirubin,Total 1.1 MG/DL (0.2-1.0); Calcium 7.2 MG/DL (8.5-10.1); Total Protein 5.8 G/DL (6.4-8.3)
[2020-03-18] MEDS: METOCLOPRAMIDE 10 MG/2 ML VIAL IV SCH ×3 (07:18→18:06)
[2020-03-18] MEDS: INSULIN REGULAR 100 UNIT/ML SUBCUT SCH ×3 (07:21→18:06)
[2020-03-18 07:25] LABS: Osmolality,Calculated 312.1 MOS/KG (273-304)
[2020-03-18] MEDS ORDERED: SODIUM POLYSTYRENE SULFATE 15 GM/60 ML BOTTLE PO ONE (07:40)
[2020-03-18 07:52] LABS: Anisocytosis 1+; Band Neutrophils 2 % (0-10); Lymphocytes 4 % (20-55); Macrocytosis 1+; Metamyelocytes 3 %; Platelet Estimate Normal; Segmented Neutrophils 91 % (50-85)
[2020-03-18 07:53] LABS: Total Cells Counted 100
[2020-03-18] MEDS: methylPREDNISolone SOD SUC 40 MG/1 ML VIAL IV SCH ×2 (08:05→20:01)
[2020-03-18] MEDS: FAMOTIDINE 20 MG/2 ML VIAL IV SCH (08:05)
[2020-03-18] MEDS: CALCIUM ACETATE 667 MG CAPSULE PO SCH ×3 (08:06→16:58)
[2020-03-18] MEDS: ZINC SULFATE 220 MG CAPSULE NG SCH (08:06)
[2020-03-18] MEDS: CHOLECALCIFEROL 1,000 UNIT TABLET PO SCH (08:06)
[2020-03-18] MEDS: ASCORBIC ACID 500 MG TABLET NG SCH ×2 (08:06→20:02)
[2020-03-18] MEDS: METOPROLOL TARTRATE 25 MG TABLET NG SCH ×2 (08:06→20:02)
[2020-03-18] MEDS: FINASTERIDE 5 MG TABLET PO SCH (08:08)
[2020-03-18] MEDS: INSULIN GLARGINE 100 UNIT/ML SUBCUT SCH (20:01)
[2020-03-18] MEDS: FLUCONAZOLE INJ 200 MG in PREMIX 1 EACH IV SCH (20:02)
[2020-03-19] MEDS: METOCLOPRAMIDE 10 MG/2 ML VIAL IV SCH ×3 (00:56→11:47)
[2020-03-19] MEDS: INSULIN REGULAR 100 UNIT/ML SUBCUT SCH ×4 (00:56→18:21)
[2020-03-19] MEDS: ALBUTEROL INHALER 18 GM INH SCH ×7 (00:56→20:30)
[2020-03-19] MEDS: MEROPENEM 500 MG in SODIUM CHLORIDE 0.9% 100 ML IV SCH (02:16)
[2020-03-19] MEDS: LINEZOLID INJ 600 MG in PREMIX 1 EACH IV SCH ×2 (02:50→15:45)
[2020-03-19 04:36] LABS: Basophils # 0.1 10*3/uL (0.0-0.2); Basophils % 0.2 % (0.0-0.8); Hematocrit 21.9 VOL% (42.0-52.0); Hemoglobin 7.6 GM/DL (14.0-18.0); Immature Granulocytes % 5.1 %; Immature Granulocytes Absolute 1.53 #; Lymphocytes # 0.6 10*3/uL (1.4-4.0); Lymphocytes % 2.1 % (21.2-54.2); Mean Corpuscular HGB Conc 34.7 GM/DL (32-36); Mean Corpuscular Volume 93.6 FL (87-102); Mean Platelet Volume 12.2 FL (9.6-12.0); Monocytes % 3.8 % (1.7-12.7); NRBC # 0.04 10*3/uL; Neutrophils % 88.8 % (38.7-73.9); Platelet Count 188 T/CUMM (130-400); Red Blood Count 2.34 MC/CUMM (3.8-5.5); Red Cell Distribution Width 21.1 % (9.3-17.3); White Blood Count 30.2 T/CUMM (4-12)
[2020-03-19 04:50] LABS: ABG Base Excess -9.2 MMOL/L (-2.5-2.5); ABG Oxygen Saturation 94.4 % (95-100); ABG PO2 96.2 MM HG (80-95); ABG TCO2 18.8 MMOL/L (23-27)
[2020-03-19 04:51] LABS: Allen Test Positive; Pt O2 Delivery Device Ventilator
[2020-03-19 04:53] LABS: ABG PH 7.158 (7.35-7.45)
[2020-03-19 04:58] LABS: Osmolality,Calculated 313.9 MOS/KG (273-304)
[2020-03-19 05:05] LABS: Calcium 5.8 MG/DL (8.5-10.1)
[2020-03-19 06:37] LABS: Albumin 1.9 G/DL (3.4-5.0); Bilirubin,Total 0.5 MG/DL (0.2-1.0); Osmolality,Calculated 311.9 MOS/KG (273-304); Total Protein 5.4 G/DL (6.4-8.3)
[2020-03-19 06:52] LABS: Calcium 5.7 MG/DL (8.5-10.1)
[2020-03-19] MEDS ORDERED: CALCIUM GLUCONATE 1,000 MG in SODIUM CHLORIDE 0.9% 100 ML IV ONE (07:56)
[2020-03-19 08:39] LABS: Anisocytosis 2+; Band Neutrophils 1 % (0-10); Lymphocytes 4 % (20-55); Macrocytosis 1+; Metamyelocytes 2 %; Microcytosis 1+; Platelet Estimate Normal; Segmented Neutrophils 90 % (50-85); Total Cells Counted 100
[2020-03-19] MEDS: FINASTERIDE 5 MG TABLET PO SCH (08:43)
[2020-03-19] MEDS: ASCORBIC ACID 500 MG TABLET NG SCH ×2 (08:43→20:12)
[2020-03-19] MEDS: FAMOTIDINE 20 MG/2 ML VIAL IV SCH (08:43)
[2020-03-19] MEDS: CHOLECALCIFEROL 1,000 UNIT TABLET PO SCH (08:43)
[2020-03-19] MEDS: methylPREDNISolone SOD SUC 40 MG/1 ML VIAL IV SCH ×2 (08:43→20:12)
[2020-03-19] MEDS: METOPROLOL TARTRATE 25 MG TABLET NG SCH ×2 (08:43→20:12)
[2020-03-19] MEDS: CALCIUM ACETATE 667 MG CAPSULE PO SCH ×3 (08:43→18:21)
[2020-03-19] MEDS ORDERED: SODIUM CHLORIDE 0.9% 1,000 ML IV PRN (10:20)
[2020-03-19] MEDS: FLUCONAZOLE INJ 200 MG in PREMIX 1 EACH IV SCH (20:12)
[2020-03-19] MEDS: INSULIN GLARGINE 100 UNIT/ML SUBCUT SCH (22:09)
[2020-03-19] MEDS: METOPROLOL TARTRATE 5 MG/5 ML VIAL IV PRN (23:20)
[2020-03-20] MEDS: INSULIN REGULAR 100 UNIT/ML SUBCUT SCH ×4 (00:40→18:30)
[2020-03-20] MEDS: ALBUTEROL INHALER 18 GM INH SCH ×6 (03:12→23:19)
[2020-03-20 05:14] LABS: Basophils % 0.2 % (0.0-0.8); Hematocrit 20.3 VOL% (42.0-52.0); Hemoglobin 6.9 GM/DL (14.0-18.0); Immature Granulocytes % 4.4 %; Immature Granulocytes Absolute 1.08 #; Lymphocytes # 0.3 10*3/uL (1.4-4.0); Lymphocytes % 1.4 % (21.2-54.2); Mean Corpuscular Volume 92.3 FL (87-102); Mean Platelet Volume 12.3 FL (9.6-12.0); Monocytes % 3.1 % (1.7-12.7); NRBC # 0.03 10*3/uL; Neutrophils % 90.9 % (38.7-73.9); Platelet Count 150 T/CUMM (130-400); Red Cell Distribution Width 20.8 % (9.3-17.3); White Blood Count 24.5 T/CUMM (4-12)
[2020-03-20 05:36] LABS: ABG Base Excess -8.8 MMOL/L (-2.5-2.5); ABG Oxygen Saturation 97.3 % (95-100); ABG PH 7.292 (7.35-7.45); ABG PO2 117.7 MM HG (80-95); ABG TCO2 18.1 MMOL/L (23-27); Allen Test Positive; Pt O2 Delivery Device Ventilator
[2020-03-20 05:40] LABS: Osmolality,Calculated 307.8 MOS/KG (273-304); PT Patient Result 10.7 SECS (9.8-11.9)
[2020-03-20] MEDS: MEROPENEM 500 MG in SODIUM CHLORIDE 0.9% 100 ML IV SCH (05:42)
[2020-03-20 05:45] LABS: Band Neutrophils 2 % (0-10); Lymphocytes 2 % (20-55); Segmented Neutrophils 93 % (50-85); Total Cells Counted 100
[2020-03-20 05:46] LABS: Hypochromasia 1+; Microcytosis 1+; Platelet Estimate Adequate
[2020-03-20 05:49] LABS: Calcium 5.7 MG/DL (8.5-10.1)
[2020-03-20] MEDS: LINEZOLID INJ 600 MG in PREMIX 1 EACH IV SCH (07:06)
[2020-03-20] MEDS ORDERED: SODIUM CHLORIDE 0.9% 1,000 ML IV PRN (08:30)
[2020-03-20] MEDS: ZINC SULFATE 220 MG CAPSULE NG SCH (08:50)
[2020-03-20] MEDS: METOPROLOL TARTRATE 25 MG TABLET NG SCH (08:50)
[2020-03-20] MEDS: FINASTERIDE 5 MG TABLET PO SCH (08:50)
[2020-03-20] MEDS: ASCORBIC ACID 500 MG TABLET NG SCH ×2 (08:50→20:14)
[2020-03-20] MEDS: CALCIUM ACETATE 667 MG CAPSULE PO SCH ×3 (08:50→18:30)
[2020-03-20] MEDS: CHOLECALCIFEROL 1,000 UNIT TABLET PO SCH (08:51)
[2020-03-20] MEDS: methylPREDNISolone SOD SUC 40 MG/1 ML VIAL IV SCH ×2 (08:51→20:13)
[2020-03-20] MEDS: FAMOTIDINE 20 MG/2 ML VIAL IV SCH (08:52)
[2020-03-20 08:53] LABS: Albumin 1.7 G/DL (3.4-5.0); Bilirubin,Total 0.9 MG/DL (0.2-1.0); Osmolality,Calculated 310.9 MOS/KG (273-304); Total Protein 5.2 G/DL (6.4-8.3)
[2020-03-20 08:57] LABS: Calcium 5.6 MG/DL (8.5-10.1)
[2020-03-20] MEDS: SODIUM BICARBONATE 650 MG TABLET PO SCH ×2 (08:58→20:14)
[2020-03-20] MEDS: CALCIUM CARBONATE CHEW 500 MG TABLET PO SCH ×2 (08:59→20:13)
[2020-03-20] MEDS ORDERED: CALCIUM GLUCONATE 2,000 MG in SODIUM CHLORIDE 0.9% 100 ML IV ONE (09:30)
[2020-03-20] MEDS: hydrALAZINE 20 MG/1 ML VIAL IV PRN ×2 (10:36→19:40)
[2020-03-20] MEDS: carvediloL 3.125 MG TABLET PO SCH ×2 (12:11→20:14)
[2020-03-20] MEDS: DESITIN 4OZ/NYSTATIN 15 GRAM MIXTURE PASTE TOP SCH ×2 (15:46→21:14)
[2020-03-20] MEDS: ALBUMIN 25% 25 GM in PREMIX 1 EACH IV SCH (16:55)
[2020-03-20 20:54] LABS: Hematocrit 25.4 VOL% (42.0-52.0)
[2020-03-20] MEDS: INSULIN GLARGINE 100 UNIT/ML SUBCUT SCH (21:14)
[2020-03-21] MEDS: hydrALAZINE 20 MG/1 ML VIAL IV PRN ×3 (00:24→18:46)
[2020-03-21] MEDS: ALBUMIN 25% 25 GM in PREMIX 1 EACH IV SCH ×4 (00:34→23:59)
[2020-03-21] MEDS: INSULIN REGULAR 100 UNIT/ML SUBCUT SCH ×5 (02:18→23:56)
[2020-03-21] MEDS: ALBUTEROL INHALER 18 GM INH SCH ×6 (03:02→23:59)
[2020-03-21 04:07] LABS: Allen Test Positive; Pt O2 Delivery Device Ventilator
[2020-03-21 04:17] LABS: ABG Base Excess -8.4 MMOL/L (-2.5-2.5); ABG HCO3 17.7 MMOL/L (20-26); ABG Oxygen Saturation 99.5 % (95-100); ABG PCO2 35.7 MM HG (35-48); ABG PH 7.295 (7.35-7.45); ABG TCO2 15.5 MMOL/L (23-27)
[2020-03-21 04:59] LABS: Basophils % 0.1 % (0.0-0.8); Hematocrit 23.4 VOL% (42.0-52.0); Hemoglobin 8.2 GM/DL (14.0-18.0); Immature Granulocytes % 4.1 %; Immature Granulocytes Absolute 1.17 #; Lymphocytes # 0.4 10*3/uL (1.4-4.0); Lymphocytes % 1.4 % (21.2-54.2); Mean Platelet Volume 11.7 FL (9.6-12.0); Monocytes % 3.4 % (1.7-12.7); NRBC # 0.04 10*3/uL; Platelet Count 136 T/CUMM (130-400); Red Blood Count 2.63 MC/CUMM (3.8-5.5); Red Cell Distribution Width 19.7 % (9.3-17.3); White Blood Count 28.8 T/CUMM (4-12)
[2020-03-21 05:22] LABS: Calcium 6.1 MG/DL (8.5-10.1); Osmolality,Calculated 306.8 MOS/KG (273-304)
[2020-03-21 06:01] LABS: Total Cells Counted 100
[2020-03-21 06:05] LABS: Band Neutrophils 3 % (0-10); Hypochromasia 1+; Lymphocytes 1 % (20-55); Platelet Estimate Decreased; Segmented Neutrophils 94 % (50-85)
[2020-03-21] MEDS ORDERED: CALCIUM GLUCONATE 1,000 MG in SODIUM CHLORIDE 0.9% 100 ML IV ONE (08:00)
[2020-03-21] MEDS: FAMOTIDINE 20 MG/2 ML VIAL IV SCH (08:07)
[2020-03-21] MEDS: ASCORBIC ACID 500 MG TABLET NG SCH ×2 (08:08→20:03)
[2020-03-21] MEDS: CALCIUM CARBONATE CHEW 500 MG TABLET PO SCH ×2 (08:08→20:03)
[2020-03-21] MEDS: carvediloL 3.125 MG TABLET PO SCH ×2 (08:09→20:03)
[2020-03-21] MEDS: CALCIUM ACETATE 667 MG CAPSULE PO SCH ×3 (08:09→18:50)
[2020-03-21] MEDS: SODIUM BICARBONATE 650 MG TABLET PO SCH ×2 (08:09→20:03)
[2020-03-21] MEDS: FINASTERIDE 5 MG TABLET PO SCH (08:09)
[2020-03-21] MEDS: CHOLECALCIFEROL 1,000 UNIT TABLET PO SCH (08:09)
[2020-03-21] MEDS: methylPREDNISolone SOD SUC 40 MG/1 ML VIAL IV SCH ×2 (08:10→20:02)
[2020-03-21] MEDS: DESITIN 4OZ/NYSTATIN 15 GRAM MIXTURE PASTE TOP SCH ×2 (08:30→21:24)
[2020-03-21] MEDS: amLODIPine 5 MG TABLET PO SCH (11:05)
[2020-03-21] MEDS: METOPROLOL TARTRATE 5 MG/5 ML VIAL IV PRN (15:15)
[2020-03-21 18:06] LABS: ABG HCO3 16.6 MMOL/L (20-26); ABG Oxygen Saturation 98.8 % (95-100); ABG PCO2 34.1 MM HG (35-48); ABG TCO2 14.1 MMOL/L (23-27)
[2020-03-21] MEDS: INSULIN GLARGINE 100 UNIT/ML SUBCUT SCH (21:23)
[2020-03-22 02:38] LABS: ABG Base Excess -11.6 MMOL/L (-2.5-2.5); ABG HCO3 15.1 MMOL/L (20-26); ABG Oxygen Saturation 97.4 % (95-100); ABG PCO2 33.8 MM HG (35-48); ABG PH 7.249 (7.35-7.45); ABG TCO2 14.2 MMOL/L (23-27)
[2020-03-22] MEDS: ALBUTEROL INHALER 18 GM INH SCH ×5 (03:00→18:06)
[2020-03-22 05:21] LABS: Basophils % 0.1 % (0.0-0.8); Hematocrit 20.8 VOL% (42.0-52.0); Hemoglobin 7.1 GM/DL (14.0-18.0); Immature Granulocytes % 4.2 %; Immature Granulocytes Absolute 1.06 #; Lymphocytes # 0.3 10*3/uL (1.4-4.0); Lymphocytes % 1.2 % (21.2-54.2); Mean Corpuscular HGB Conc 34.1 GM/DL (32-36); Mean Corpuscular Volume 91.2 FL (87-102); Mean Platelet Volume 12.4 FL (9.6-12.0); Monocytes % 2.9 % (1.7-12.7); NRBC # 0.02 10*3/uL; Neutrophils % 91.6 % (38.7-73.9); Platelet Count 124 T/CUMM (130-400); Red Blood Count 2.28 MC/CUMM (3.8-5.5); Red Cell Distribution Width 19.7 % (9.3-17.3); White Blood Count 25.2 T/CUMM (4-12)
[2020-03-22 05:46] LABS: Band Neutrophils 1 % (0-10); Hypochromasia 1+; Lymphocytes 1 % (20-55); Microcytosis 1+; Segmented Neutrophils 95 % (50-85); Total Cells Counted 100
[2020-03-22 05:58] LABS: Calcium 6.1 MG/DL (8.5-10.1); Osmolality,Calculated 316.1 MOS/KG (273-304)
[2020-03-22] MEDS: INSULIN REGULAR 100 UNIT/ML SUBCUT SCH ×3 (06:27→18:06)
[2020-03-22] MEDS: ALBUMIN 25% 25 GM in PREMIX 1 EACH IV SCH (06:52)
[2020-03-22] MEDS: methylPREDNISolone SOD SUC 40 MG/1 ML VIAL IV SCH ×2 (08:10→20:16)
[2020-03-22] MEDS: FAMOTIDINE 20 MG/2 ML VIAL IV SCH (08:10)
[2020-03-22] MEDS: SODIUM BICARBONATE 650 MG TABLET PO SCH ×2 (08:10→20:16)
[2020-03-22] MEDS: amLODIPine 5 MG TABLET PO SCH (08:11)
[2020-03-22] MEDS: ZINC SULFATE 220 MG CAPSULE NG SCH (08:11)
[2020-03-22] MEDS: ASCORBIC ACID 500 MG TABLET NG SCH ×2 (08:11→20:16)
[2020-03-22] MEDS: carvediloL 3.125 MG TABLET PO SCH ×2 (08:11→20:16)
[2020-03-22] MEDS: CALCIUM ACETATE 667 MG CAPSULE PO SCH ×3 (08:11→18:06)
[2020-03-22] MEDS: FINASTERIDE 5 MG TABLET PO SCH (08:11)
[2020-03-22] MEDS: CHOLECALCIFEROL 1,000 UNIT TABLET PO SCH (08:11)
[2020-03-22] MEDS: MULTIVITAMIN LIQUID (CENTRUM) 60 ML BOTTLE NG SCH (08:12)
[2020-03-22] MEDS: DESITIN 4OZ/NYSTATIN 15 GRAM MIXTURE PASTE TOP SCH ×2 (09:29→20:56)
[2020-03-22] MEDS: CALCIUM CARBONATE CHEW 500 MG TABLET PO SCH ×2 (10:06→20:16)
[2020-03-22] MEDS: INSULIN GLARGINE 100 UNIT/ML SUBCUT SCH (21:00)
[2020-03-23] MEDS: ALBUTEROL INHALER 18 GM INH SCH ×6 (00:23→18:23)
[2020-03-23] MEDS: INSULIN REGULAR 100 UNIT/ML SUBCUT SCH ×4 (00:28→17:33)
[2020-03-23 04:30] LABS: ABG Base Excess -8.8 MMOL/L (-2.5-2.5); ABG HCO3 16.1 MMOL/L (20-26); ABG Oxygen Saturation 95.3 % (95-100); ABG PCO2 30.7 MM HG (35-48); ABG PH 7.337 (7.35-7.45); ABG PO2 91.7 MM HG (80-95); Allen Test Positive; Pt O2 Delivery Device Ventilator
[2020-03-23 05:15] LABS: Basophils % 0.1 % (0.0-0.8); Hematocrit 24.7 VOL% (42.0-52.0); Immature Granulocytes % 4.6 %; Immature Granulocytes Absolute 1.17 #; Lymphocytes # 0.3 10*3/uL (1.4-4.0); Lymphocytes % 1.3 % (21.2-54.2); Mean Corpuscular HGB Conc 34.8 GM/DL (32-36); Mean Platelet Volume 12.8 FL (9.6-12.0); NRBC # 0.03 10*3/uL; Platelet Count 115 T/CUMM (130-400); Red Cell Distribution Width 18.4 % (9.3-17.3); White Blood Count 25.7 T/CUMM (4-12)
[2020-03-23 05:17] LABS: Red Blood Count 2.84 MC/CUMM (3.8-5.5)
[2020-03-23 05:18] LABS: Hemoglobin 8.6 GM/DL (14.0-18.0)
[2020-03-23 05:23] LABS: Band Neutrophils 1 % (0-10); Hypochromasia 1+; Lymphocytes 3 % (20-55); Microcytosis 1+; Ovalocytes Slight; Segmented Neutrophils 92 % (50-85); Total Cells Counted 100
[2020-03-23 05:32] LABS: Calcium 6.1 MG/DL (8.5-10.1); Osmolality,Calculated 309.8 MOS/KG (273-304)
[2020-03-23] MEDS: ASCORBIC ACID 500 MG TABLET NG SCH ×2 (08:41→20:10)
[2020-03-23] MEDS: CALCIUM ACETATE 667 MG CAPSULE PO SCH ×3 (08:41→17:33)
[2020-03-23] MEDS: CALCIUM CARBONATE CHEW 500 MG TABLET PO SCH ×2 (08:41→20:11)
[2020-03-23] MEDS: carvediloL 3.125 MG TABLET PO SCH ×2 (08:41→20:11)
[2020-03-23] MEDS: SODIUM BICARBONATE 650 MG TABLET PO SCH ×2 (08:41→20:11)
[2020-03-23] MEDS: amLODIPine 5 MG TABLET PO SCH (08:42)
[2020-03-23] MEDS: FAMOTIDINE 20 MG/2 ML VIAL IV SCH (08:42)
[2020-03-23] MEDS: methylPREDNISolone SOD SUC 40 MG/1 ML VIAL IV SCH ×2 (08:42→20:12)
[2020-03-23] MEDS: MULTIVITAMIN LIQUID (CENTRUM) 60 ML BOTTLE NG SCH (08:42)
[2020-03-23] MEDS: CHOLECALCIFEROL 1,000 UNIT TABLET PO SCH (08:42)
[2020-03-23] MEDS: FINASTERIDE 5 MG TABLET PO SCH (08:42)
[2020-03-23] MEDS: DESITIN 4OZ/NYSTATIN 15 GRAM MIXTURE PASTE TOP SCH ×2 (08:43→20:11)
[2020-03-23] MEDS ORDERED: CALCIUM GLUCONATE 1,000 MG in SODIUM CHLORIDE 0.9% 100 ML IV ONE (09:00)
[2020-03-23] MEDS: hydrALAZINE 20 MG/1 ML VIAL IV PRN (11:08)
[2020-03-24] MEDS: ALBUTEROL INHALER 18 GM INH SCH ×7 (00:01→23:47)
[2020-03-24] MEDS: INSULIN REGULAR 100 UNIT/ML SUBCUT SCH ×6 (00:01→23:48)
[2020-03-24 04:10] LABS: Basophils % 0.1 % (0.0-0.8); Hematocrit 25.5 VOL% (42.0-52.0); Hemoglobin 8.8 GM/DL (14.0-18.0); Immature Granulocytes % 3.9 %; Immature Granulocytes Absolute 0.97 #; Lymphocytes # 0.4 10*3/uL (1.4-4.0); Lymphocytes % 1.5 % (21.2-54.2); Mean Corpuscular HGB Conc 34.5 GM/DL (32-36); Mean Corpuscular Volume 88.2 FL (87-102); NRBC # 0.02 10*3/uL; Neutrophils % 92.5 % (38.7-73.9); Platelet Count 106 T/CUMM (130-400); Red Blood Count 2.89 MC/CUMM (3.8-5.5); Red Cell Distribution Width 18.6 % (9.3-17.3); White Blood Count 25.2 T/CUMM (4-12)
[2020-03-24 04:32] LABS: Band Neutrophils 3 % (0-10); Hypochromasia 1+; Lymphocytes 4 % (20-55); Myelocytes 1 %; Segmented Neutrophils 92 % (50-85); Total Cells Counted 100
[2020-03-24 04:37] LABS: Anisocytosis 1+; Microcytosis 1+; Ovalocytes Slight; Platelet Estimate Decreased
[2020-03-24 04:44] LABS: Calcium 5.9 MG/DL (8.5-10.1); Osmolality,Calculated 321.2 MOS/KG (273-304)
[2020-03-24 04:58] LABS: ABG Base Excess -10.4 MMOL/L (-2.5-2.5); ABG HCO3 15.3 MMOL/L (20-26); ABG Oxygen Saturation 93.6 % (95-100); ABG PCO2 33.1 MM HG (35-48); ABG PH 7.282 (7.35-7.45); ABG PO2 82.7 MM HG (80-95); ABG TCO2 16.3 MMOL/L (23-27); Allen Test Positive; Pt O2 Delivery Device Ventilator
[2020-03-24] MEDS ORDERED: VANCOMYCIN INJ 750 MG in SODIUM CHLORIDE 0.9% 250 ML IV PRN (08:27)
[2020-03-24] MEDS ORDERED: SODIUM BICARBONATE 50 MEQ/50 ML VIAL IV ONE (08:38)
[2020-03-24] MEDS: CALCIUM CARBONATE CHEW 500 MG TABLET PO SCH ×2 (08:39→20:35)
[2020-03-24] MEDS: methylPREDNISolone SOD SUC 40 MG/1 ML VIAL IV SCH ×2 (08:39→20:33)
[2020-03-24] MEDS: ZINC SULFATE 220 MG CAPSULE NG SCH (08:40)
[2020-03-24] MEDS: amLODIPine 5 MG TABLET PO SCH (08:41)
[2020-03-24] MEDS: carvediloL 3.125 MG TABLET PO SCH ×2 (08:41→20:35)
[2020-03-24] MEDS: ASCORBIC ACID 500 MG TABLET NG SCH ×2 (08:41→20:35)
[2020-03-24] MEDS: CALCIUM ACETATE 667 MG CAPSULE PO SCH ×5 (08:41→20:34)
[2020-03-24] MEDS: FINASTERIDE 5 MG TABLET PO SCH (08:41)
[2020-03-24] MEDS: CHOLECALCIFEROL 1,000 UNIT TABLET PO SCH (08:42)
[2020-03-24] MEDS: FAMOTIDINE 20 MG/2 ML VIAL IV SCH (08:42)
[2020-03-24] MEDS: SODIUM BICARBONATE 650 MG TABLET PO SCH ×3 (08:43→20:34)
[2020-03-24] MEDS: MULTIVITAMIN LIQUID (CENTRUM) 60 ML BOTTLE NG SCH (08:47)
[2020-03-24] MEDS: DESITIN 4OZ/NYSTATIN 15 GRAM MIXTURE PASTE TOP SCH ×2 (08:54→20:32)
[2020-03-24] MEDS ORDERED: VANCOMYCIN INJ 2,250 MG in SODIUM CHLORIDE 0.9% 500 ML IV ONE (09:30)
[2020-03-24] MEDS ORDERED: CALCIUM GLUCONATE 2,000 MG in SODIUM CHLORIDE 0.9% 100 ML IV ONE (10:00)
[2020-03-24] MEDS: INSULIN GLARGINE 100 UNIT/ML SUBCUT SCH ×2 (20:33)
[2020-03-24] MEDS ORDERED: VANCOMYCIN INJ 750 MG in SODIUM CHLORIDE 0.9% 250 ML IV ONE (21:00)
[2020-03-24] MEDS: hydrALAZINE 20 MG/1 ML VIAL IV PRN (21:40)
[2020-03-25] MEDS: ALBUTEROL INHALER 18 GM INH SCH ×6 (02:41→23:47)
[2020-03-25] MEDS: SODIUM BICARBONATE 650 MG TABLET PO SCH ×4 (02:41→20:24)
[2020-03-25 03:03] LABS: ABG Base Excess -8.3 MMOL/L (-2.5-2.5); ABG HCO3 17.6 MMOL/L (20-26); ABG Oxygen Saturation 94.2 % (95-100); ABG PCO2 35.6 MM HG (35-48); ABG PH 7.298 (7.35-7.45); ABG TCO2 16.3 MMOL/L (23-27); Allen Test Positive; Pt O2 Delivery Device Ventilator
[2020-03-25 04:54] LABS: Basophils % 0.1 % (0.0-0.8); Hematocrit 25.7 VOL% (42.0-52.0); Hemoglobin 8.7 GM/DL (14.0-18.0); Immature Granulocytes % 4.3 %; Immature Granulocytes Absolute 0.82 #; Lymphocytes # 0.3 10*3/uL (1.4-4.0); Lymphocytes % 1.8 % (21.2-54.2); Mean Corpuscular HGB Conc 33.9 GM/DL (32-36); Mean Corpuscular Volume 89.9 FL (87-102); Mean Platelet Volume 12.4 FL (9.6-12.0); Monocytes % 2.6 % (1.7-12.7); Neutrophils % 91.2 % (38.7-73.9); Platelet Count 102 T/CUMM (130-400); Red Blood Count 2.86 MC/CUMM (3.8-5.5); Red Cell Distribution Width 18.3 % (9.3-17.3)
[2020-03-25 05:03] LABS: Bilirubin,Total 1.2 MG/DL (0.2-1.0); Calcium 6.2 MG/DL (8.5-10.1); Total Protein 5.1 G/DL (6.4-8.3)
[2020-03-25 05:11] LABS: Osmolality,Calculated 321.7 MOS/KG (273-304)
[2020-03-25] MEDS: INSULIN REGULAR 100 UNIT/ML SUBCUT SCH ×4 (05:20→23:47)
[2020-03-25 05:40] LABS: Lymphocytes 3 % (20-55); Microcytosis 1+; Platelet Estimate Decreased; Segmented Neutrophils 96 % (50-85); Total Cells Counted 100
[2020-03-25] MEDS: methylPREDNISolone SOD SUC 40 MG/1 ML VIAL IV SCH ×2 (08:11→20:33)
[2020-03-25] MEDS: CALCIUM ACETATE 667 MG CAPSULE PO SCH ×3 (08:12→20:32)
[2020-03-25] MEDS: carvediloL 3.125 MG TABLET PO SCH ×2 (08:13→20:32)
[2020-03-25] MEDS: FINASTERIDE 5 MG TABLET PO SCH (08:13)
[2020-03-25] MEDS: amLODIPine 5 MG TABLET PO SCH (08:13)
[2020-03-25] MEDS: CHOLECALCIFEROL 1,000 UNIT TABLET PO SCH (08:13)
[2020-03-25] MEDS: CALCIUM CARBONATE CHEW 500 MG TABLET PO SCH ×2 (08:13→20:23)
[2020-03-25] MEDS: FAMOTIDINE 20 MG/2 ML VIAL IV SCH (08:14)
[2020-03-25] MEDS: ASCORBIC ACID 500 MG TABLET NG SCH ×2 (08:14→20:32)
[2020-03-25] MEDS: MULTIVITAMIN LIQUID (CENTRUM) 60 ML BOTTLE NG SCH (08:22)
[2020-03-25] MEDS: DESITIN 4OZ/NYSTATIN 15 GRAM MIXTURE PASTE TOP SCH ×2 (08:22→21:59)
[2020-03-25] MEDS: METOCLOPRAMIDE 10 MG/2 ML VIAL IV SCH ×3 (12:25→23:48)
[2020-03-25] MEDS ORDERED: VANCOMYCIN INJ 750 MG in SODIUM CHLORIDE 0.9% 250 ML IV ONE (17:00)
[2020-03-25] MEDS: INSULIN GLARGINE 100 UNIT/ML SUBCUT SCH (20:33)
[2020-03-25] MEDS: hydrALAZINE 20 MG/1 ML VIAL IV PRN (21:55)
[2020-03-26] MEDS: ALBUTEROL INHALER 18 GM INH SCH ×6 (03:32→23:35)
[2020-03-26] MEDS: SODIUM BICARBONATE 650 MG TABLET PO SCH ×4 (03:32→21:00)
[2020-03-26 04:04] LABS: Basophils % 0.1 % (0.0-0.8); Hemoglobin 8.9 GM/DL (14.0-18.0); Immature Granulocytes % 2.3 %; Immature Granulocytes Absolute 0.36 #; Lymphocytes # 0.4 10*3/uL (1.4-4.0); Lymphocytes % 2.7 % (21.2-54.2); Mean Corpuscular HGB Conc 34.2 GM/DL (32-36); Mean Platelet Volume 12.1 FL (9.6-12.0); Monocytes % 1.8 % (1.7-12.7); Neutrophils % 93.1 % (38.7-73.9); Red Blood Count 2.92 MC/CUMM (3.8-5.5); Red Cell Distribution Width 18.1 % (9.3-17.3); White Blood Count 15.9 T/CUMM (4-12)
[2020-03-26 04:07] LABS: Platelet Count 97 T/CUMM (130-400)
[2020-03-26 04:31] LABS: Band Neutrophils 1 % (0-10); Hypochromasia 1+; Lymphocytes 6 % (20-55); Microcytosis 1+; Platelet Estimate Decreased; Segmented Neutrophils 89 % (50-85); Total Cells Counted 100
[2020-03-26 04:37] LABS: ABG Base Excess -8.2 MMOL/L (-2.5-2.5); ABG HCO3 17.8 MMOL/L (20-26); ABG Oxygen Saturation 98.7 % (95-100); ABG PCO2 29.4 MM HG (35-48); ABG PH 7.352 (7.35-7.45); ABG TCO2 14.8 MMOL/L (23-27); Allen Test Positive; Pt O2 Delivery Device Ventilator
[2020-03-26 04:47] LABS: Albumin 2.1 G/DL (3.4-5.0); Bilirubin,Total 0.8 MG/DL (0.2-1.0); Calcium 6.3 MG/DL (8.5-10.1); Osmolality,Calculated 323.5 MOS/KG (273-304); Total Protein 5.2 G/DL (6.4-8.3)
[2020-03-26] MEDS: hydrALAZINE 20 MG/1 ML VIAL IV PRN (04:57)
[2020-03-26] MEDS: METOCLOPRAMIDE 10 MG/2 ML VIAL IV SCH ×4 (05:07→23:35)
[2020-03-26] MEDS: INSULIN REGULAR 100 UNIT/ML SUBCUT SCH ×4 (05:16→23:35)
[2020-03-26] MEDS: methylPREDNISolone SOD SUC 40 MG/1 ML VIAL IV SCH ×2 (07:57→20:59)
[2020-03-26] MEDS: CHOLECALCIFEROL 1,000 UNIT TABLET PO SCH (08:00)
[2020-03-26] MEDS: CALCIUM CARBONATE CHEW 500 MG TABLET PO SCH ×2 (08:00→21:00)
[2020-03-26] MEDS: FINASTERIDE 5 MG TABLET PO SCH (08:00)
[2020-03-26] MEDS: carvediloL 3.125 MG TABLET PO SCH ×2 (08:01→21:00)
[2020-03-26] MEDS: amLODIPine 5 MG TABLET PO SCH (08:01)
[2020-03-26] MEDS: CALCIUM ACETATE 667 MG CAPSULE PO SCH ×3 (08:01→21:00)
[2020-03-26] MEDS: ZINC SULFATE 220 MG CAPSULE NG SCH (08:01)
[2020-03-26] MEDS: ASCORBIC ACID 500 MG TABLET NG SCH ×2 (08:01→21:00)
[2020-03-26] MEDS: MULTIVITAMIN LIQUID (CENTRUM) 60 ML BOTTLE NG SCH (08:02)
[2020-03-26] MEDS: FAMOTIDINE 20 MG/2 ML VIAL IV SCH (08:02)
[2020-03-26] MEDS: DESITIN 4OZ/NYSTATIN 15 GRAM MIXTURE PASTE TOP SCH ×2 (08:03→21:01)
[2020-03-26] MEDS ORDERED: SODIUM BICARBONATE 50 MEQ/50 ML VIAL IV ONE (11:30)
[2020-03-26] MEDS: INSULIN GLARGINE 100 UNIT/ML SUBCUT SCH (20:59)
[2020-03-27] MEDS: SODIUM BICARBONATE 650 MG TABLET PO SCH ×4 (02:38→20:19)
[2020-03-27] MEDS: ALBUTEROL INHALER 18 GM INH SCH ×6 (02:38→23:30)
[2020-03-27 03:30] LABS: ABG Base Excess -8.2 MMOL/L (-2.5-2.5); ABG HCO3 16.1 MMOL/L (20-26); ABG Oxygen Saturation 97.9 % (95-100); ABG PCO2 28.9 MM HG (35-48); ABG PH 7.364 (7.35-7.45); ABG PO2 139.1 MM HG (80-95)
[2020-03-27 04:30] LABS: Basophils % 0.1 % (0.0-0.8); Hematocrit 26.1 VOL% (42.0-52.0); Hemoglobin 8.9 GM/DL (14.0-18.0); Immature Granulocytes % 2.2 %; Immature Granulocytes Absolute 0.33 #; Lymphocytes # 0.4 10*3/uL (1.4-4.0); Lymphocytes % 2.4 % (21.2-54.2); Mean Corpuscular HGB Conc 34.1 GM/DL (32-36); Mean Corpuscular Volume 88.5 FL (87-102); Mean Platelet Volume 12.1 FL (9.6-12.0); Monocytes % 1.9 % (1.7-12.7); Neutrophils % 93.4 % (38.7-73.9); Platelet Count 99 T/CUMM (130-400); Red Blood Count 2.95 MC/CUMM (3.8-5.5); Red Cell Distribution Width 17.7 % (9.3-17.3); White Blood Count 15.1 T/CUMM (4-12)
[2020-03-27 04:49] LABS: Lymphocytes 3 % (20-55); Segmented Neutrophils 96 % (50-85); Total Cells Counted 100
[2020-03-27 04:50] LABS: Hypochromasia 1+; Microcytosis 1+; Ovalocytes Slight; Platelet Estimate Decreased
[2020-03-27 04:55] LABS: Albumin 2.1 G/DL (3.4-5.0); Bilirubin,Total 0.9 MG/DL (0.2-1.0); Calcium 6.4 MG/DL (8.5-10.1); Osmolality,Calculated 331.8 MOS/KG (273-304); Total Protein 5.1 G/DL (6.4-8.3)
[2020-03-27] MEDS: INSULIN REGULAR 100 UNIT/ML SUBCUT SCH ×4 (05:04→23:54)
[2020-03-27] MEDS: METOCLOPRAMIDE 10 MG/2 ML VIAL IV SCH ×3 (05:53→18:06)
[2020-03-27] MEDS: DESITIN 4OZ/NYSTATIN 15 GRAM MIXTURE PASTE TOP SCH ×2 (08:07→20:19)
[2020-03-27] MEDS: CALCIUM ACETATE 667 MG CAPSULE PO SCH ×3 (08:07→20:19)
[2020-03-27] MEDS: FAMOTIDINE 20 MG/2 ML VIAL IV SCH (08:07)
[2020-03-27] MEDS: carvediloL 3.125 MG TABLET PO SCH ×2 (08:07→20:19)
[2020-03-27] MEDS: amLODIPine 5 MG TABLET PO SCH (08:07)
[2020-03-27] MEDS: methylPREDNISolone SOD SUC 40 MG/1 ML VIAL IV SCH ×2 (08:07→20:19)
[2020-03-27] MEDS: ASCORBIC ACID 500 MG TABLET NG SCH ×2 (08:07→20:19)
[2020-03-27] MEDS: CALCIUM CARBONATE CHEW 500 MG TABLET PO SCH ×2 (08:07→20:19)
[2020-03-27] MEDS: MULTIVITAMIN LIQUID (CENTRUM) 60 ML BOTTLE NG SCH (08:07)
[2020-03-27] MEDS: FINASTERIDE 5 MG TABLET PO SCH (08:07)
[2020-03-27] MEDS: CHOLECALCIFEROL 1,000 UNIT TABLET PO SCH (08:08)
[2020-03-27] MEDS: INSULIN GLARGINE 100 UNIT/ML SUBCUT SCH (20:19)
[2020-03-27] MEDS ORDERED: VANCOMYCIN INJ 750 MG in SODIUM CHLORIDE 0.9% 250 ML IV ONE (21:00)
[2020-03-28] MEDS: ALBUTEROL INHALER 18 GM INH SCH ×5 (03:02→20:28)
[2020-03-28] MEDS: SODIUM BICARBONATE 650 MG TABLET PO SCH ×4 (03:30→20:29)
[2020-03-28 04:05] LABS: Allen Test Positive; Pt O2 Delivery Device Ventilator
[2020-03-28 04:10] LABS: ABG Base Excess -7.1 MMOL/L (-2.5-2.5); ABG HCO3 16.4 MMOL/L (20-26); ABG Oxygen Saturation 98.2 % (95-100); ABG PCO2 26.4 MM HG (35-48); ABG PH 7.411 (7.35-7.45); ABG PO2 143.3 MM HG (80-95); ABG TCO2 17.2 MMOL/L (23-27)
[2020-03-28 05:12] LABS: Basophils % 0.1 % (0.0-0.8); Hemoglobin 8.9 GM/DL (14.0-18.0); Immature Granulocytes % 1.2 %; Immature Granulocytes Absolute 0.24 #; Lymphocytes # 0.6 10*3/uL (1.4-4.0); Lymphocytes % 2.8 % (21.2-54.2); Mean Corpuscular HGB Conc 34.2 GM/DL (32-36); Mean Corpuscular Volume 88.1 FL (87-102); Mean Platelet Volume 12.4 FL (9.6-12.0); Monocytes % 2.3 % (1.7-12.7); Neutrophils % 93.6 % (38.7-73.9); Platelet Count 109 T/CUMM (130-400); Red Blood Count 2.95 MC/CUMM (3.8-5.5); Red Cell Distribution Width 17.6 % (9.3-17.3); White Blood Count 19.5 T/CUMM (4-12)
[2020-03-28 05:40] LABS: Albumin 2.2 G/DL (3.4-5.0); Bilirubin,Total 0.7 MG/DL (0.2-1.0); Calcium 6.8 MG/DL (8.5-10.1); Osmolality,Calculated 328.4 MOS/KG (273-304); Total Protein 5.2 G/DL (6.4-8.3)
[2020-03-28] MEDS: INSULIN REGULAR 100 UNIT/ML SUBCUT SCH ×3 (05:52→17:43)
[2020-03-28] MEDS: METOCLOPRAMIDE 10 MG/2 ML VIAL IV SCH ×4 (05:52→17:43)
[2020-03-28 06:48] LABS: Hypochromasia 1+; Lymphocytes 1 % (20-55); Microcytosis 1+; Platelet Estimate Decreased; Segmented Neutrophils 97 % (50-85); Total Cells Counted 100
[2020-03-28] MEDS: ASCORBIC ACID 500 MG TABLET NG SCH ×2 (08:12→20:29)
[2020-03-28] MEDS: CALCIUM CARBONATE CHEW 500 MG TABLET PO SCH ×2 (08:12→20:29)
[2020-03-28] MEDS: CALCIUM ACETATE 667 MG CAPSULE PO SCH ×3 (08:12→20:29)
[2020-03-28] MEDS: FINASTERIDE 5 MG TABLET PO SCH (08:12)
[2020-03-28] MEDS: amLODIPine 5 MG TABLET PO SCH (08:13)
[2020-03-28] MEDS: carvediloL 3.125 MG TABLET PO SCH ×2 (08:13→20:29)
[2020-03-28] MEDS: ZINC SULFATE 220 MG CAPSULE NG SCH (08:13)
[2020-03-28] MEDS: CHOLECALCIFEROL 1,000 UNIT TABLET PO SCH (08:13)
[2020-03-28] MEDS: FAMOTIDINE 20 MG/2 ML VIAL IV SCH (08:14)
[2020-03-28] MEDS: DESITIN 4OZ/NYSTATIN 15 GRAM MIXTURE PASTE TOP SCH ×2 (08:14→20:29)
[2020-03-28] MEDS: MULTIVITAMIN LIQUID (CENTRUM) 60 ML BOTTLE NG SCH (08:14)
[2020-03-28] MEDS: methylPREDNISolone SOD SUC 40 MG/1 ML VIAL IV SCH ×2 (08:14→20:29)
[2020-03-28] MEDS ORDERED: amLODIPine 5 MG TABLET PO SCH (10:30)
[2020-03-28] MEDS ORDERED: methylPREDNISolone SOD SUC 40 MG/1 ML VIAL IV SCH (11:00)
[2020-03-28] MEDS: DEXTROSE 50% 25 GM/50 ML VIAL IV PRN ×2 (11:07→17:15)
[2020-03-28] MEDS: METOPROLOL TARTRATE 5 MG/5 ML VIAL IV PRN (13:59)
[2020-03-28] MEDS ORDERED: VANCOMYCIN INJ 750 MG in SODIUM CHLORIDE 0.9% 250 ML IV ONE (17:00)
[2020-03-28] MEDS: INSULIN GLARGINE 100 UNIT/ML SUBCUT SCH (20:29)
[2020-03-29] MEDS: METOCLOPRAMIDE 10 MG/2 ML VIAL IV SCH ×4 (00:37→19:20)
[2020-03-29] MEDS: INSULIN REGULAR 100 UNIT/ML SUBCUT SCH ×4 (00:37→19:25)
[2020-03-29] MEDS: ALBUTEROL INHALER 18 GM INH SCH ×7 (00:37→23:00)
[2020-03-29] MEDS: SODIUM BICARBONATE 650 MG TABLET PO SCH ×4 (02:45→20:05)
[2020-03-29] MEDS: hydrALAZINE 20 MG/1 ML VIAL IV PRN (04:35)
[2020-03-29 04:36] LABS: Basophils % 0.1 % (0.0-0.8); Hematocrit 23.5 VOL% (42.0-52.0); Immature Granulocytes % 0.6 %; Immature Granulocytes Absolute 0.09 #; Lymphocytes # 0.4 10*3/uL (1.4-4.0); Lymphocytes % 2.5 % (21.2-54.2); Mean Corpuscular Volume 90.4 FL (87-102); Mean Platelet Volume 12.8 FL (9.6-12.0); Monocytes % 1.8 % (1.7-12.7); Red Cell Distribution Width 17.2 % (9.3-17.3); White Blood Count 14.6 T/CUMM (4-12)
[2020-03-29 04:49] LABS: Calcium 6.7 MG/DL (8.5-10.1); Osmolality,Calculated 311.4 MOS/KG (273-304)
[2020-03-29 05:00] LABS: Platelet Count 78 T/CUMM (130-400)
[2020-03-29 05:08] LABS: ABG HCO3 21.1 MMOL/L (20-26); ABG Oxygen Saturation 98.4 % (95-100); ABG PCO2 29.2 MM HG (35-48); ABG PH 7.432 (7.35-7.45); ABG TCO2 17.9 MMOL/L (23-27); Allen Test Positive; Pt O2 Delivery Device Ventilator
[2020-03-29 05:15] LABS: Band Neutrophils 1 % (0-10); Hypochromasia 2+; Lymphocytes 2 % (20-55); Microcytosis 1+; Platelet Estimate Decreased; Segmented Neutrophils 96 % (50-85); Total Cells Counted 100
[2020-03-29] MEDS: CALCIUM CARBONATE CHEW 500 MG TABLET PO SCH (08:12)
[2020-03-29] MEDS: DESITIN 4OZ/NYSTATIN 15 GRAM MIXTURE PASTE TOP SCH ×2 (08:13→20:05)
[2020-03-29] MEDS: ASCORBIC ACID 500 MG TABLET NG SCH ×2 (08:13→20:05)
[2020-03-29] MEDS: CHOLECALCIFEROL 1,000 UNIT TABLET PO SCH (08:13)
[2020-03-29] MEDS: carvediloL 3.125 MG TABLET PO SCH ×3 (08:13→20:05)
[2020-03-29] MEDS: MULTIVITAMIN LIQUID (CENTRUM) 60 ML BOTTLE NG SCH (08:13)
[2020-03-29] MEDS: FINASTERIDE 5 MG TABLET PO SCH (08:13)
[2020-03-29] MEDS: amLODIPine 10 MG TABLET PO SCH (08:13)
[2020-03-29] MEDS: CALCIUM ACETATE 667 MG CAPSULE PO SCH ×3 (08:13→20:05)
[2020-03-29] MEDS: FAMOTIDINE 20 MG/2 ML VIAL IV SCH (08:15)
[2020-03-29] MEDS: methylPREDNISolone SOD SUC 40 MG/1 ML VIAL IV SCH ×2 (08:15→20:05)
[2020-03-29] MEDS: INSULIN GLARGINE 100 UNIT/ML SUBCUT SCH (20:05)
[2020-03-30] MEDS: METOCLOPRAMIDE 10 MG/2 ML VIAL IV SCH ×5 (00:30→23:45)
[2020-03-30] MEDS: INSULIN REGULAR 100 UNIT/ML SUBCUT SCH ×5 (01:09→23:45)
[2020-03-30 03:24] LABS: ABG Base Excess -4.4 MMOL/L (-2.5-2.5); ABG Oxygen Saturation 96.9 % (95-100); ABG PCO2 27.9 MM HG (35-48); ABG PO2 100.2 MM HG (80-95); ABG TCO2 19.8 MMOL/L (23-27); Allen Test Positive; Pt O2 Delivery Device Ventilator
[2020-03-30] MEDS: SODIUM BICARBONATE 650 MG TABLET PO SCH ×2 (03:59→08:11)
[2020-03-30] MEDS: ALBUTEROL INHALER 18 GM INH SCH ×6 (03:59→23:45)
[2020-03-30 04:30] LABS: Basophils % 0.1 % (0.0-0.8); Hematocrit 23.4 VOL% (42.0-52.0); Hemoglobin 7.9 GM/DL (14.0-18.0); Immature Granulocytes Absolute 0.15 #; Lymphocytes # 0.4 10*3/uL (1.4-4.0); Lymphocytes % 2.8 % (21.2-54.2); Mean Corpuscular HGB Conc 33.8 GM/DL (32-36); Mean Corpuscular Volume 91.1 FL (87-102); Mean Platelet Volume 12.6 FL (9.6-12.0); Monocytes % 1.6 % (1.7-12.7); Neutrophils % 94.5 % (38.7-73.9); Red Blood Count 2.57 MC/CUMM (3.8-5.5); Red Cell Distribution Width 17.2 % (9.3-17.3); White Blood Count 14.8 T/CUMM (4-12)
[2020-03-30 04:32] LABS: Platelet Count 77 T/CUMM (130-400)
[2020-03-30 04:50] LABS: Osmolality,Calculated 323.2 MOS/KG (273-304)
[2020-03-30 04:58] LABS: Band Neutrophils 2 % (0-10); Platelet Estimate Decreased; Segmented Neutrophils 98 % (50-85); Total Cells Counted 100
[2020-03-30 04:59] LABS: Hypochromasia 1+
[2020-03-30 05:02] LABS: Parathyroid Hormone Intact 696.1 PG/ML (18.4-80.1)
[2020-03-30] MEDS: CHOLECALCIFEROL 1,000 UNIT TABLET PO SCH (08:10)
[2020-03-30] MEDS: CALCIUM ACETATE 667 MG CAPSULE PO SCH ×3 (08:10→20:51)
[2020-03-30] MEDS: ZINC SULFATE 220 MG CAPSULE NG SCH (08:10)
[2020-03-30] MEDS: FINASTERIDE 5 MG TABLET PO SCH (08:10)
[2020-03-30] MEDS: amLODIPine 10 MG TABLET PO SCH (08:11)
[2020-03-30] MEDS: carvediloL 3.125 MG TABLET PO SCH ×2 (08:11→20:53)
[2020-03-30] MEDS: ASCORBIC ACID 500 MG TABLET NG SCH ×2 (08:12→20:53)
[2020-03-30] MEDS: MULTIVITAMIN LIQUID (CENTRUM) 60 ML BOTTLE NG SCH (08:12)
[2020-03-30] MEDS: methylPREDNISolone SOD SUC 40 MG/1 ML VIAL IV SCH ×2 (08:13→20:52)
[2020-03-30] MEDS: FAMOTIDINE 20 MG/2 ML VIAL IV SCH (08:14)
[2020-03-30] MEDS: DESITIN 4OZ/NYSTATIN 15 GRAM MIXTURE PASTE TOP SCH ×2 (08:14→20:53)
[2020-03-30] MEDS: ERGOCALCIFEROL 50,000 UNIT CAPSULE PO SCH (09:41)
[2020-03-30] MEDS: METOPROLOL TARTRATE 5 MG/5 ML VIAL IV PRN (14:15)
[2020-03-30] MEDS: INSULIN GLARGINE 100 UNIT/ML SUBCUT SCH (20:52)
[2020-03-30] MEDS ORDERED: VANCOMYCIN INJ 750 MG in SODIUM CHLORIDE 0.9% 250 ML IV ONE (21:00)
[2020-03-30] MEDS: ACETAMINOPHEN 325 MG TABLET NG PRN (23:46)
[2020-03-31] MEDS: ALBUTEROL INHALER 18 GM INH SCH ×6 (03:00→23:50)
[2020-03-31 03:40] LABS: ABG Base Excess -1.5 MMOL/L (-2.5-2.5); ABG HCO3 23.2 MMOL/L (20-26); ABG Oxygen Saturation 97.4 % (95-100); ABG PCO2 34.1 MM HG (35-48); ABG PH 7.427 (7.35-7.45); ABG PO2 98.5 MM HG (80-95); ABG TCO2 21.1 MMOL/L (23-27); Allen Test Positive; Pt O2 Delivery Device Ventilator
[2020-03-31 04:59] LABS: Eosinophils % 0.2 % (0.00-10.9); Hematocrit 20.9 VOL% (42.0-52.0); Hemoglobin 6.8 GM/DL (14.0-18.0); Immature Granulocytes % 0.6 %; Immature Granulocytes Absolute 0.04 #; Lymphocytes # 0.3 10*3/uL (1.4-4.0); Lymphocytes % 3.8 % (21.2-54.2); Mean Corpuscular HGB Conc 32.5 GM/DL (32-36); Mean Corpuscular Volume 92.9 FL (87-102); Mean Platelet Volume 12.7 FL (9.6-12.0); Monocytes % 2.3 % (1.7-12.7); Neutrophils % 93.1 % (38.7-73.9); Platelet Count 66 T/CUMM (130-400); Red Blood Count 2.25 MC/CUMM (3.8-5.5); Red Cell Distribution Width 17.2 % (9.3-17.3); White Blood Count 6.5 T/CUMM (4-12)
[2020-03-31 05:11] LABS: Calcium 7.1 MG/DL (8.5-10.1); Osmolality,Calculated 307.1 MOS/KG (273-304)
[2020-03-31 05:35] LABS: Band Neutrophils 3 % (0-10); Eosinophils 2 % (0-10); Hypochromasia 1+; Lymphocytes 1 % (20-55); Microcytosis 1+; Segmented Neutrophils 93 % (50-85); Total Cells Counted 100
[2020-03-31 05:38] LABS: Platelet Estimate Decreased
[2020-03-31] MEDS: INSULIN REGULAR 100 UNIT/ML SUBCUT SCH ×4 (06:41→23:53)
[2020-03-31] MEDS: METOCLOPRAMIDE 10 MG/2 ML VIAL IV SCH ×4 (06:41→23:44)
[2020-03-31] MEDS: CALCIUM ACETATE 667 MG CAPSULE PO SCH ×3 (08:05→20:08)
[2020-03-31] MEDS: ASCORBIC ACID 500 MG TABLET NG SCH ×2 (08:05→20:07)
[2020-03-31] MEDS: FAMOTIDINE 20 MG/2 ML VIAL IV SCH (08:05)
[2020-03-31] MEDS: methylPREDNISolone SOD SUC 40 MG/1 ML VIAL IV SCH ×2 (08:05→20:07)
[2020-03-31] MEDS: amLODIPine 10 MG TABLET PO SCH (08:05)
[2020-03-31] MEDS: carvediloL 3.125 MG TABLET PO SCH (08:06)
[2020-03-31] MEDS: MULTIVITAMIN LIQUID (CENTRUM) 60 ML BOTTLE NG SCH (08:06)
[2020-03-31] MEDS: FINASTERIDE 5 MG TABLET PO SCH (08:06)
[2020-03-31] MEDS: DESITIN 4OZ/NYSTATIN 15 GRAM MIXTURE PASTE TOP SCH ×2 (08:06→20:08)
[2020-03-31] MEDS ORDERED: VANCOMYCIN INJ 500 MG in SODIUM CHLORIDE 0.9% 100 ML IV PRN (13:00)
[2020-03-31] MEDS: INSULIN GLARGINE 100 UNIT/ML SUBCUT SCH (20:07)
[2020-03-31] MEDS: METOPROLOL TARTRATE 25 MG TABLET PO SCH (20:07)
[2020-04-01] MEDS: ALBUTEROL INHALER 18 GM INH SCH ×5 (04:00→20:15)
[2020-04-01 04:16] LABS: Hematocrit 24.7 VOL% (42.0-52.0); Hemoglobin 8.2 GM/DL (14.0-18.0); Immature Granulocytes % 0.4 %; Immature Granulocytes Absolute 0.02 #; Lymphocytes # 0.2 10*3/uL (1.4-4.0); Lymphocytes % 4.5 % (21.2-54.2); Mean Corpuscular HGB Conc 33.2 GM/DL (32-36); Mean Corpuscular Volume 90.1 FL (87-102); Mean Platelet Volume 12.2 FL (9.6-12.0); Monocytes % 2.1 % (1.7-12.7); Platelet Count 54 T/CUMM (130-400); Red Blood Count 2.74 MC/CUMM (3.8-5.5); Red Cell Distribution Width 17.7 % (9.3-17.3); White Blood Count 4.7 T/CUMM (4-12)
[2020-04-01 04:29] LABS: INR 1.1; PT Patient Result 11.8 SECS (9.8-11.9); Partial Thromboplastin Time 32.9 SECS (23.9-33.8)
[2020-04-01 04:39] LABS: Calcium 7.3 MG/DL (8.5-10.1); Osmolality,Calculated 308.7 MOS/KG (273-304)
[2020-04-01 04:53] LABS: ABG Base Excess 0.2 MMOL/L (-2.5-2.5); ABG HCO3 24.6 MMOL/L (20-26); ABG Oxygen Saturation 97.8 % (95-100); ABG PCO2 35.7 MM HG (35-48); ABG PH 7.437 (7.35-7.45); ABG TCO2 22.1 MMOL/L (23-27); Allen Test Positive; Pt O2 Delivery Device Ventilator
[2020-04-01] MEDS: INSULIN REGULAR 100 UNIT/ML SUBCUT SCH ×3 (05:42→18:38)
[2020-04-01] MEDS: METOCLOPRAMIDE 10 MG/2 ML VIAL IV SCH ×3 (05:42→18:39)
[2020-04-01 07:50] LABS: Band Neutrophils 1 % (0-10); Lymphocytes 4 % (20-55); Platelet Estimate Decreased; Segmented Neutrophils 94 % (50-85); Total Cells Counted 100
[2020-04-01 07:51] LABS: Microcytosis Slight
[2020-04-01] MEDS: CALCIUM ACETATE 667 MG CAPSULE PO SCH ×3 (08:19→20:14)
[2020-04-01] MEDS: METOPROLOL TARTRATE 25 MG TABLET PO SCH ×2 (08:19→20:14)
[2020-04-01] MEDS: ZINC SULFATE 220 MG CAPSULE NG SCH (08:19)
[2020-04-01] MEDS: amLODIPine 10 MG TABLET PO SCH (08:20)
[2020-04-01] MEDS: ASCORBIC ACID 500 MG TABLET NG SCH ×2 (08:20→20:13)
[2020-04-01] MEDS: FINASTERIDE 5 MG TABLET PO SCH (08:20)
[2020-04-01] MEDS: MULTIVITAMIN LIQUID (CENTRUM) 60 ML BOTTLE NG SCH (08:20)
[2020-04-01] MEDS: FAMOTIDINE 20 MG/2 ML VIAL IV SCH (08:21)
[2020-04-01] MEDS: methylPREDNISolone SOD SUC 40 MG/1 ML VIAL IV SCH ×2 (08:21→20:14)
[2020-04-01] MEDS: DESITIN 4OZ/NYSTATIN 15 GRAM MIXTURE PASTE TOP SCH ×2 (09:21→20:14)
[2020-04-01] MEDS: INSULIN GLARGINE 100 UNIT/ML SUBCUT SCH (20:14)
[2020-04-02] MEDS: METOPROLOL TARTRATE 5 MG/5 ML VIAL IV PRN (00:33)
[2020-04-02] MEDS: METOCLOPRAMIDE 10 MG/2 ML VIAL IV SCH ×4 (00:34→18:54)
[2020-04-02] MEDS: ALBUTEROL INHALER 18 GM INH SCH ×6 (00:34→20:47)
[2020-04-02] MEDS: INSULIN REGULAR 100 UNIT/ML SUBCUT SCH ×4 (00:34→17:56)
[2020-04-02 04:12] LABS: Hematocrit 25.7 VOL% (42.0-52.0); Hemoglobin 8.5 GM/DL (14.0-18.0); Immature Granulocytes % 0.8 %; Immature Granulocytes Absolute 0.04 #; Lymphocytes # 0.2 10*3/uL (1.4-4.0); Lymphocytes % 4.8 % (21.2-54.2); Mean Corpuscular HGB Conc 33.1 GM/DL (32-36); Mean Corpuscular Volume 91.1 FL (87-102); Mean Platelet Volume 12.4 FL (9.6-12.0); Monocytes % 3.8 % (1.7-12.7); Neutrophils % 90.6 % (38.7-73.9); Platelet Count 64 T/CUMM (130-400); Red Blood Count 2.82 MC/CUMM (3.8-5.5); Red Cell Distribution Width 17.5 % (9.3-17.3)
[2020-04-02 04:36] LABS: Albumin 1.8 G/DL (3.4-5.0); Bilirubin,Total 0.9 MG/DL (0.2-1.0); Calcium 7.6 MG/DL (8.5-10.1); Ferritin 6845.8 ng/ml (26-388); Osmolality,Calculated 314.1 MOS/KG (273-304); Total Protein 5.1 G/DL (6.4-8.3)
[2020-04-02 04:58] LABS: ABG Base Excess -2.3 MMOL/L (-2.5-2.5); ABG HCO3 22.4 MMOL/L (20-26); ABG Oxygen Saturation 96.7 % (95-100); ABG PCO2 35.4 MM HG (35-48); ABG PO2 91.3 MM HG (80-95); ABG TCO2 19.7 MMOL/L (23-27); Allen Test Positive; Pt O2 Delivery Device Ventilator
[2020-04-02 06:06] LABS: Anisocytosis 1+; Band Neutrophils 26 % (0-10); Burr Cells Few; Lymphocytes 2 % (20-55); Metamyelocytes 1 %; Platelet Estimate Decreased; Segmented Neutrophils 69 % (50-85); Total Cells Counted 100
[2020-04-02 06:07] LABS: Smudge Cells Few
[2020-04-02] MEDS: hydrALAZINE 20 MG/1 ML VIAL IV PRN ×2 (06:09→14:48)
[2020-04-02] MEDS: FINASTERIDE 5 MG TABLET PO SCH (09:19)
[2020-04-02] MEDS: ASCORBIC ACID 500 MG TABLET NG SCH ×2 (09:19→20:48)
[2020-04-02] MEDS: DESITIN 4OZ/NYSTATIN 15 GRAM MIXTURE PASTE TOP SCH ×2 (09:19→20:47)
[2020-04-02] MEDS: methylPREDNISolone SOD SUC 40 MG/1 ML VIAL IV SCH ×2 (09:19→20:45)
[2020-04-02] MEDS: CALCIUM ACETATE 667 MG CAPSULE PO SCH ×3 (09:19→20:47)
[2020-04-02] MEDS: METOPROLOL TARTRATE 50 MG TABLET PO SCH ×2 (09:19→20:47)
[2020-04-02] MEDS: MULTIVITAMIN LIQUID (CENTRUM) 60 ML BOTTLE NG SCH (09:19)
[2020-04-02] MEDS: FAMOTIDINE 20 MG/2 ML VIAL IV SCH (09:19)
[2020-04-02] MEDS: amLODIPine 10 MG TABLET PO SCH (09:19)
[2020-04-02] MEDS: hydrALAZINE 25 MG TABLET PO SCH ×3 (09:19→20:47)
[2020-04-02] MEDS: INSULIN GLARGINE 100 UNIT/ML SUBCUT SCH (20:47)
[2020-04-03] MEDS: METOCLOPRAMIDE 10 MG/2 ML VIAL IV SCH ×5 (00:53→23:40)
[2020-04-03] MEDS: INSULIN REGULAR 100 UNIT/ML SUBCUT SCH ×5 (00:55→23:43)
[2020-04-03] MEDS: ALBUTEROL INHALER 18 GM INH SCH ×7 (00:55→22:43)
[2020-04-03 04:09] LABS: ABG Base Excess -2.8 MMOL/L (-2.5-2.5); ABG HCO3 22.1 MMOL/L (20-26); ABG Oxygen Saturation 98.3 % (95-100); ABG PCO2 34.6 MM HG (35-48); ABG PH 7.399 (7.35-7.45); ABG TCO2 19.3 MMOL/L (23-27); Allen Test Positive; Pt O2 Delivery Device Ventilator
[2020-04-03 05:16] LABS: Hematocrit 26.9 VOL% (42.0-52.0); Hemoglobin 8.9 GM/DL (14.0-18.0); Immature Granulocytes % 0.5 %; Immature Granulocytes Absolute 0.02 #; Lymphocytes # 0.1 10*3/uL (1.4-4.0); Lymphocytes % 3.6 % (21.2-54.2); Mean Corpuscular HGB Conc 33.1 GM/DL (32-36); Mean Platelet Volume 12.3 FL (9.6-12.0); Monocytes % 4.6 % (1.7-12.7); Neutrophils % 91.3 % (38.7-73.9); Platelet Count 54 T/CUMM (130-400); Red Blood Count 2.99 MC/CUMM (3.8-5.5); Red Cell Distribution Width 17.3 % (9.3-17.3); White Blood Count 3.7 T/CUMM (4-12)
[2020-04-03 05:36] LABS: Band Neutrophils 6 % (0-10); Hypochromasia 1+; Lymphocytes 5 % (20-55); Microcytosis 1+; Ovalocytes Slight; Platelet Estimate Decreased; Segmented Neutrophils 85 % (50-85); Total Cells Counted 100
[2020-04-03 05:46] LABS: Albumin 1.7 G/DL (3.4-5.0); Bilirubin,Total 0.4 MG/DL (0.2-1.0); Calcium 7.9 MG/DL (8.5-10.1); Osmolality,Calculated 319.1 MOS/KG (273-304); Total Protein 5.1 G/DL (6.4-8.3)
[2020-04-03] MEDS: CALCIUM ACETATE 667 MG CAPSULE PO SCH ×3 (08:56→20:14)
[2020-04-03] MEDS: METOPROLOL TARTRATE 50 MG TABLET PO SCH ×2 (08:57→20:15)
[2020-04-03] MEDS: ASCORBIC ACID 500 MG TABLET NG SCH ×2 (08:57→20:15)
[2020-04-03] MEDS: amLODIPine 10 MG TABLET PO SCH (08:57)
[2020-04-03] MEDS: hydrALAZINE 25 MG TABLET PO SCH ×3 (08:57→20:15)
[2020-04-03] MEDS: FINASTERIDE 5 MG TABLET PO SCH (08:57)
[2020-04-03] MEDS: ZINC SULFATE 220 MG CAPSULE NG SCH (08:57)
[2020-04-03] MEDS: MULTIVITAMIN LIQUID (CENTRUM) 60 ML BOTTLE NG SCH (08:57)
[2020-04-03] MEDS: FAMOTIDINE 20 MG/2 ML VIAL IV SCH (08:58)
[2020-04-03] MEDS: methylPREDNISolone SOD SUC 40 MG/1 ML VIAL IV SCH ×2 (08:59→20:14)
[2020-04-03] MEDS: DESITIN 4OZ/NYSTATIN 15 GRAM MIXTURE PASTE TOP SCH ×2 (08:59→20:25)
[2020-04-03] MEDS: METOPROLOL TARTRATE 5 MG/5 ML VIAL IV PRN (11:10)
[2020-04-03] MEDS ORDERED: DIGOXIN 0.5 MG/2 ML AMP IV ONE ×2 (11:30→12:30)
[2020-04-03] MEDS ORDERED: DIGOXIN 0.5 MG/2 ML AMP ONE (11:35)
[2020-04-03] MEDS ORDERED: AMIODARONE INJ 450 MG in DEXTROSE 5% 241 ML IV SCH (13:30)
[2020-04-03] MEDS: hydrALAZINE 20 MG/1 ML VIAL IV PRN ×2 (13:53→22:10)
[2020-04-03] MEDS: lisinopriL 10 MG TABLET PO SCH (18:47)
[2020-04-03] MEDS: INSULIN GLARGINE 100 UNIT/ML SUBCUT SCH (20:25)
[2020-04-03] MEDS ORDERED: VANCOMYCIN INJ 500 MG in SODIUM CHLORIDE 0.9% 100 ML IV ONE (21:00)
[2020-04-03] MEDS: AMIODARONE INJ 450 MG in DEXTROSE 5% 241 ML IV SCH (21:36)
[2020-04-04] MEDS: ALBUTEROL INHALER 18 GM INH SCH ×6 (03:10→23:38)
[2020-04-04 04:17] LABS: ABG Base Excess -3.4 MMOL/L (-2.5-2.5); ABG HCO3 20.5 MMOL/L (20-26); ABG Oxygen Saturation 97.7 % (95-100); ABG PCO2 32.3 MM HG (35-48); ABG PH 7.421 (7.35-7.45); ABG PO2 112.2 MM HG (80-95); ABG TCO2 21.5 MMOL/L (23-27); Allen Test Positive; Pt O2 Delivery Device Ventilator
[2020-04-04 05:01] LABS: Basophils % 0.4 % (0.0-0.8); Hematocrit 23.9 VOL% (42.0-52.0); Hemoglobin 7.8 GM/DL (14.0-18.0); Immature Granulocytes % 1.2 %; Immature Granulocytes Absolute 0.03 #; Lymphocytes # 0.2 10*3/uL (1.4-4.0); Lymphocytes % 7.3 % (21.2-54.2); Mean Corpuscular HGB Conc 32.6 GM/DL (32-36); Mean Corpuscular Volume 92.3 FL (87-102); Monocytes % 5.7 % (1.7-12.7); Neutrophils % 85.4 % (38.7-73.9); Platelet Count 51 T/CUMM (130-400); Red Blood Count 2.59 MC/CUMM (3.8-5.5); Red Cell Distribution Width 17.2 % (9.3-17.3); White Blood Count 2.5 T/CUMM (4-12)
[2020-04-04 05:10] LABS: Calcium 7.5 MG/DL (8.5-10.1); Osmolality,Calculated 313.1 MOS/KG (273-304)
[2020-04-04 05:25] LABS: Band Neutrophils 2 % (0-10); Hypochromasia 2+; Lymphocytes 8 % (20-55); Microcytosis 1+; Platelet Estimate Decreased; Segmented Neutrophils 88 % (50-85); Total Cells Counted 100
[2020-04-04] MEDS: INSULIN REGULAR 100 UNIT/ML SUBCUT SCH ×4 (06:19→23:38)
[2020-04-04] MEDS: METOCLOPRAMIDE 10 MG/2 ML VIAL IV SCH ×4 (06:20→23:50)
[2020-04-04] MEDS: DESITIN 4OZ/NYSTATIN 15 GRAM MIXTURE PASTE TOP SCH ×2 (08:25→20:15)
[2020-04-04] MEDS: METOPROLOL TARTRATE 50 MG TABLET PO SCH ×2 (09:42→20:07)
[2020-04-04] MEDS: AMIODARONE 200 MG TABLET PO SCH ×2 (09:42→20:06)
[2020-04-04] MEDS: amLODIPine 10 MG TABLET PO SCH (09:42)
[2020-04-04] MEDS: ASCORBIC ACID 500 MG TABLET NG SCH ×2 (09:42→20:06)
[2020-04-04] MEDS: CALCIUM ACETATE 667 MG CAPSULE PO SCH ×3 (09:42→20:15)
[2020-04-04] MEDS: MULTIVITAMIN LIQUID (CENTRUM) 60 ML BOTTLE NG SCH (09:43)
[2020-04-04] MEDS: FINASTERIDE 5 MG TABLET PO SCH (09:43)
[2020-04-04] MEDS: lisinopriL 10 MG TABLET PO SCH (09:43)
[2020-04-04] MEDS: methylPREDNISolone SOD SUC 40 MG/1 ML VIAL IV SCH ×2 (09:45→20:08)
[2020-04-04] MEDS: FAMOTIDINE 20 MG/2 ML VIAL IV SCH (09:46)
[2020-04-04] MEDS: hydrALAZINE 25 MG TABLET PO SCH ×3 (09:51→20:06)
[2020-04-04] MEDS ORDERED: ceFAZolin 1,000 MG in SYRINGE 1 EACH IV ONE (10:27)
[2020-04-04] MEDS: AMIODARONE INJ 450 MG in DEXTROSE 5% 241 ML IV SCH (13:30)
[2020-04-04] MEDS: SODIUM BICARBONATE 650 MG TABLET PO SCH ×2 (15:30→20:06)
[2020-04-04] MEDS ORDERED: DIGOXIN 0.5 MG/2 ML AMP IV ONE ×2 (18:23)
[2020-04-04] MEDS ORDERED: DIGOXIN 0.5 MG/2 ML AMP ONE (18:37)
[2020-04-04] MEDS: INSULIN GLARGINE 100 UNIT/ML SUBCUT SCH (21:17)
[2020-04-05 03:20] LABS: ABG Base Excess -2.5 MMOL/L (-2.5-2.5); ABG HCO3 22.3 MMOL/L (20-26); ABG Oxygen Saturation 99.1 % (95-100); ABG PCO2 33.3 MM HG (35-48); ABG PH 7.416 (7.35-7.45); ABG TCO2 19.7 MMOL/L (23-27); Allen Test Positive; Pt O2 Delivery Device Ventilator
[2020-04-05] MEDS: ALBUTEROL INHALER 18 GM INH SCH ×6 (03:30→23:34)
[2020-04-05 04:49] LABS: Hematocrit 29.1 VOL% (42.0-52.0); Hemoglobin 9.1 GM/DL (14.0-18.0); Immature Granulocytes % 0.3 %; Immature Granulocytes Absolute 0.01 #; Lymphocytes # 0.3 10*3/uL (1.4-4.0); Lymphocytes % 8.2 % (21.2-54.2); Mean Corpuscular HGB Conc 31.3 GM/DL (32-36); Mean Corpuscular Volume 94.2 FL (87-102); Mean Platelet Volume 12.6 FL (9.6-12.0); Monocytes % 5.6 % (1.7-12.7); Neutrophils % 85.9 % (38.7-73.9); Red Blood Count 3.09 MC/CUMM (3.8-5.5); Red Cell Distribution Width 16.7 % (9.3-17.3); White Blood Count 3.1 T/CUMM (4-12)
[2020-04-05 04:51] LABS: Platelet Count 65 T/CUMM (130-400)
[2020-04-05 05:09] LABS: Calcium 8.4 MG/DL (8.5-10.1); Osmolality,Calculated 311.2 MOS/KG (273-304)
[2020-04-05 05:14] LABS: Band Neutrophils 7 % (0-10); Lymphocytes 7 % (20-55); Platelet Estimate Decreased; Segmented Neutrophils 77 % (50-85); Total Cells Counted 100
[2020-04-05 05:15] LABS: Hypochromasia 1+; Microcytosis 1+; Ovalocytes Slight
[2020-04-05] MEDS: INSULIN REGULAR 100 UNIT/ML SUBCUT SCH ×4 (05:19→23:34)
[2020-04-05] MEDS: METOCLOPRAMIDE 10 MG/2 ML VIAL IV SCH ×3 (06:00→18:01)
[2020-04-05] MEDS ORDERED: ceFAZolin 1,000 MG in SYRINGE 1 EACH IV ONE (07:00)
[2020-04-05] MEDS ORDERED: fentaNYL 100 MCG/2 ML VIAL ONE (07:43)
[2020-04-05] MEDS ORDERED: MIDAZOLAM 2 MG/2 ML VIAL ONE (07:44)
[2020-04-05] MEDS ORDERED: ROCURONIUM 50 MG/5 ML VIAL IV ONE (07:57)
[2020-04-05] MEDS ORDERED: PHENYLEPHRINE 1 MG/10 ML SYRINGE IV ONE (07:57)
[2020-04-05] MEDS ORDERED: SEVOFLURANE 1 UNIT/15 MINUTE INH ONE (07:57)
[2020-04-05] MEDS ORDERED: LACTATED RINGERS 1,000 ML IV SCH (08:00)
[2020-04-05] MEDS: AMIODARONE 200 MG TABLET PO SCH ×2 (08:38→20:13)
[2020-04-05] MEDS: MULTIVITAMIN LIQUID (CENTRUM) 60 ML BOTTLE NG SCH (08:38)
[2020-04-05] MEDS: hydrALAZINE 25 MG TABLET PO SCH ×3 (08:38→20:13)
[2020-04-05] MEDS: CALCIUM ACETATE 667 MG CAPSULE PO SCH ×3 (08:39→20:13)
[2020-04-05] MEDS: FINASTERIDE 5 MG TABLET PO SCH (08:39)
[2020-04-05] MEDS: METOPROLOL TARTRATE 50 MG TABLET PO SCH ×2 (08:39→20:13)
[2020-04-05] MEDS: SODIUM BICARBONATE 650 MG TABLET PO SCH ×2 (08:39→20:12)
[2020-04-05] MEDS: ASCORBIC ACID 500 MG TABLET NG SCH ×2 (08:39→20:12)
[2020-04-05] MEDS: amLODIPine 10 MG TABLET PO SCH (08:39)
[2020-04-05] MEDS: ZINC SULFATE 220 MG CAPSULE NG SCH (08:39)
[2020-04-05] MEDS: DESITIN 4OZ/NYSTATIN 15 GRAM MIXTURE PASTE TOP SCH ×2 (08:39→20:13)
[2020-04-05] MEDS: lisinopriL 10 MG TABLET PO SCH (08:39)
[2020-04-05] MEDS: methylPREDNISolone SOD SUC 40 MG/1 ML VIAL IV SCH ×2 (08:54→20:14)
[2020-04-05] MEDS: FAMOTIDINE 20 MG/2 ML VIAL IV SCH (08:54)
[2020-04-05] MEDS ORDERED: propofoL 200 MG/20 ML VIAL IV ONE (10:20)
[2020-04-05] MEDS ORDERED: ceFAZolin 1,000 MG VIAL ONE (12:25)
[2020-04-05] MEDS: DIGOXIN 0.25 MG TABLET PO SCH (12:58)
[2020-04-05] MEDS: INSULIN GLARGINE 100 UNIT/ML SUBCUT SCH (23:34)
[2020-04-06] MEDS: METOCLOPRAMIDE 10 MG/2 ML VIAL IV SCH ×5 (00:39→23:19)
[2020-04-06] MEDS: ALBUTEROL INHALER 18 GM INH SCH ×6 (02:15→23:19)
[2020-04-06 04:28] LABS: ABG Base Excess -2.9 MMOL/L (-2.5-2.5); ABG HCO3 20.6 MMOL/L (20-26); ABG Oxygen Saturation 98.1 % (95-100); ABG PH 7.441 (7.35-7.45); ABG PO2 136.2 MM HG (80-95); ABG TCO2 21.6 MMOL/L (23-27); Allen Test Positive; Pt O2 Delivery Device Ventilator
[2020-04-06 04:47] LABS: Basophils % 0.3 % (0.0-0.8); Hematocrit 25.9 VOL% (42.0-52.0); Hemoglobin 8.4 GM/DL (14.0-18.0); Immature Granulocytes % 0.9 %; Immature Granulocytes Absolute 0.03 #; Lymphocytes # 0.2 10*3/uL (1.4-4.0); Lymphocytes % 4.9 % (21.2-54.2); Mean Corpuscular HGB Conc 32.4 GM/DL (32-36); Mean Corpuscular Volume 92.2 FL (87-102); Mean Platelet Volume 12.7 FL (9.6-12.0); Monocytes % 4.9 % (1.7-12.7); Platelet Count 62 T/CUMM (130-400); Red Blood Count 2.81 MC/CUMM (3.8-5.5); Red Cell Distribution Width 16.5 % (9.3-17.3); White Blood Count 3.4 T/CUMM (4-12)
[2020-04-06 05:09] LABS: Hypochromasia 1+; Lymphocytes 6 % (20-55); Microcytosis 1+; Platelet Estimate Decreased; Segmented Neutrophils 84 % (50-85); Total Cells Counted 100
[2020-04-06 05:21] LABS: Calcium 8.3 MG/DL (8.5-10.1); Osmolality,Calculated 316.2 MOS/KG (273-304)
[2020-04-06] MEDS: INSULIN REGULAR 100 UNIT/ML SUBCUT SCH ×4 (05:54→23:52)
[2020-04-06] MEDS: SODIUM BICARBONATE 650 MG TABLET PO SCH ×2 (08:09→20:18)
[2020-04-06] MEDS: CALCIUM ACETATE 667 MG CAPSULE PO SCH ×3 (08:09→20:18)
[2020-04-06] MEDS: AMIODARONE 200 MG TABLET PO SCH ×2 (08:09→20:18)
[2020-04-06] MEDS: METOPROLOL TARTRATE 50 MG TABLET PO SCH ×2 (08:09→20:18)
[2020-04-06] MEDS: ASCORBIC ACID 500 MG TABLET NG SCH ×2 (08:10→20:18)
[2020-04-06] MEDS: amLODIPine 10 MG TABLET PO SCH (08:10)
[2020-04-06] MEDS: FINASTERIDE 5 MG TABLET PO SCH (08:10)
[2020-04-06] MEDS: MULTIVITAMIN LIQUID (CENTRUM) 60 ML BOTTLE NG SCH (08:10)
[2020-04-06] MEDS: hydrALAZINE 25 MG TABLET PO SCH ×3 (08:10→20:18)
[2020-04-06] MEDS: lisinopriL 10 MG TABLET PO SCH (08:10)
[2020-04-06] MEDS: FAMOTIDINE 20 MG/2 ML VIAL IV SCH (08:11)
[2020-04-06] MEDS: DESITIN 4OZ/NYSTATIN 15 GRAM MIXTURE PASTE TOP SCH ×2 (08:11→20:19)
[2020-04-06] MEDS: methylPREDNISolone SOD SUC 40 MG/1 ML VIAL IV SCH ×2 (08:11→20:19)
[2020-04-06] MEDS: ERGOCALCIFEROL 50,000 UNIT CAPSULE PO SCH (09:02)
[2020-04-06] MEDS: DIGOXIN 0.25 MG TABLET PO SCH (14:19)
[2020-04-06] MEDS ORDERED: VANCOMYCIN INJ 500 MG in SODIUM CHLORIDE 0.9% 100 ML IV ONE (17:00)
[2020-04-06] MEDS ORDERED: VANCOMYCIN INJ 500 MG in SODIUM CHLORIDE 0.9% 100 ML IV PRN ×2 (18:19→21:00)
[2020-04-06] MEDS: INSULIN GLARGINE 100 UNIT/ML SUBCUT SCH (20:19)
[2020-04-07] MEDS: ALBUTEROL INHALER 18 GM INH SCH ×3 (02:49→10:52)
[2020-04-07 03:51] LABS: ABG Base Excess 0.5 MMOL/L (-2.5-2.5); ABG HCO3 24.9 MMOL/L (20-26); ABG Oxygen Saturation 97.9 % (95-100); ABG PCO2 34.6 MM HG (35-48); ABG PH 7.453 (7.35-7.45); ABG TCO2 22.7 MMOL/L (23-27); Allen Test Positive; Pt O2 Delivery Device Ventilator
[2020-04-07 04:59] LABS: Hematocrit 24.2 VOL% (42.0-52.0); Hemoglobin 7.4 GM/DL (14.0-18.0); Immature Granulocytes % 1.2 %; Immature Granulocytes Absolute 0.04 #; Lymphocytes # 0.2 10*3/uL (1.4-4.0); Lymphocytes % 4.5 % (21.2-54.2); Mean Corpuscular HGB Conc 30.6 GM/DL (32-36); Mean Platelet Volume 12.3 FL (9.6-12.0); Monocytes % 7.2 % (1.7-12.7); Neutrophils % 87.1 % (38.7-73.9); Platelet Count 64 T/CUMM (130-400); Red Blood Count 2.52 MC/CUMM (3.8-5.5); Red Cell Distribution Width 16.6 % (9.3-17.3); White Blood Count 3.3 T/CUMM (4-12)
[2020-04-07 05:36] LABS: Band Neutrophils 3 % (0-10); Lymphocytes 3 % (20-55); Platelet Estimate Decreased; Segmented Neutrophils 90 % (50-85); Total Cells Counted 100
[2020-04-07 05:37] LABS: Hypochromasia 2+; Microcytosis 1+; Ovalocytes Slight
[2020-04-07] MEDS: INSULIN REGULAR 100 UNIT/ML SUBCUT SCH ×2 (06:28→13:09)
[2020-04-07] MEDS: METOCLOPRAMIDE 10 MG/2 ML VIAL IV SCH ×2 (06:39→13:09)
[2020-04-07] MEDS ORDERED: SODIUM BICARBONATE 650 MG TABLET ONE ×2 (09:27→09:28)
[2020-04-07] MEDS: amLODIPine 10 MG TABLET PO SCH (10:46)
[2020-04-07] MEDS: METOPROLOL TARTRATE 50 MG TABLET PO SCH (10:47)
[2020-04-07] MEDS: lisinopriL 10 MG TABLET PO SCH (10:47)
[2020-04-07] MEDS: ASCORBIC ACID 500 MG TABLET NG SCH (10:47)
[2020-04-07] MEDS: ZINC SULFATE 220 MG CAPSULE NG SCH (10:48)
[2020-04-07] MEDS: CALCIUM ACETATE 667 MG CAPSULE PO SCH (10:48)
[2020-04-07] MEDS: AMIODARONE 200 MG TABLET PO SCH (10:48)
[2020-04-07] MEDS: FINASTERIDE 5 MG TABLET PO SCH (10:48)
[2020-04-07] MEDS: hydrALAZINE 25 MG TABLET PO SCH (10:48)
[2020-04-07] MEDS: DESITIN 4OZ/NYSTATIN 15 GRAM MIXTURE PASTE TOP SCH (10:49)
[2020-04-07] MEDS: MULTIVITAMIN LIQUID (CENTRUM) 60 ML BOTTLE NG SCH (10:49)
[2020-04-07] MEDS: methylPREDNISolone SOD SUC 40 MG/1 ML VIAL IV SCH (10:50)
[2020-04-07] MEDS: FAMOTIDINE 20 MG/2 ML VIAL IV SCH (10:51)
[2020-04-07] MEDS: DIGOXIN 0.25 MG TABLET PO SCH (13:09)
[2020-04-07 15:01] VITALS: BP 140/47
== END 2020-04-07 14:17 | DRG 4 ==
LOC: N.2E 20:54 → OBSVTOIN 20:54 → SUATTDRO 20:54 → INTOOBSV 20:54 → SUATTDRO 03-06 07:59 → N.CC 03-08 11:52
PROVIDERS: ADMIT Family Medicine; ATTEND Internal Medicine
PROC: EGDWPEG (ICD-10-PCS; 2020-04-05 07:20)